=== PATIENT | female | born 1985 | race Caucasian/White ===

== ENCOUNTER 2017-10-29 09:00 | Emergency (ER) | payer OTHER ==
[~2017-10-29] VITALS: Ht 167.6 cm; Wt 128.4 kg
[~2017-10-29 09:00] MED LIST: IBUP600T44 PO
[2017-10-29 09:06] VITALS: TEMP 36.7; Ht 167.6 cm; Wt 128.4 kg
[2017-10-29 09:59] LABS: BASO % 0.1 %; BASO ABS # 0.01 K/uL (0-0.2); EOS % 0.7 %; EOS ABS # 0.08 K/uL (0-0.5); HEMATOCRIT 44.6 % (37-47); HEMOGLOBIN 14.6 g/dL (12.0-16.0); IG# 0.09 K/uL (0.00-0.02); LYMPH % 19.5 %; LYMPH ABS # 2.22 K/uL (1.2-3.4); MEAN CELL VOLUME 78.7 fL (80-100); MEAN CORPUSCULAR HEMOGLOBIN 25.7 pg (25-34); MEAN CORPUSCULAR HGB CONC 32.7 g/dl (32-36); MEAN PLATELET VOLUME 8.9 fL (7.4-10.4); MONO % 7.1 %; MONO ABS # 0.81 K/uL (0.11-0.59); NEUT % 71.8 %; NEUT ABS # 8.16 K/uL (1.4-6.5); PLATELET COUNT 435 K/uL (130-400); RED CELL DISTRIBUTION WIDTH CV 14.6 % (11.5-14.5); RED CELL DISTRIBUTION WIDTH SD 42.2 fL (36.4-46.3); WHITE BLOOD COUNT 11.37 K/uL (4.8-10.8)
[2017-10-29 10:07] LABS: ALBUMIN 3.6 gm/dl (3.4-5.0); ALT/SGPT 60 U/L (12-78); BLOOD UREA NITROGEN 14 mg/dl (7-18); CALCIUM 8.9 mg/dl (8.5-10.1); CARBON DIOXIDE 25 mmol/L (21-32); CREATININE 0.78 mg/dl (0.60-1.20); GLUCOSE 97 mg/dl (70-99); LIPASE 169 U/L (73-393); POTASSIUM 4.2 mmol/L (3.5-5.1); SODIUM 139 mmol/L (136-145)
[2017-10-29 10:10] LABS: ALKALINE PHOSPHATASE 76 U/L (45-117); AST/SGOT 30 U/L (15-37)
[2017-10-29] MEDS ORDERED: KETOROLAC TROMETHAMINE 30 MG/ML VIAL IV STA (10:20)
--- NOTE | 2017-10-29 11:30 | DIAGNOSTIC IMAGING REPORT ---
ABD/PELVIS WITHOUT FOR STONE CT DOSE: 1791.31 mGy.cm HISTORY: Pain LEFT FLANK PAIN TECHNIQUE: Multiaxial CT images of the abdomen and pelvis were performed without the use of intravenous and oral contrast according to the standard department stone protocol. A dose lowering technique was utilized adhering to the principles of ALARA. COMPARISON STUDY: None. FINDINGS: The lung bases are clear. The unenhanced liver, gallbladder, spleen, pancreas, and adrenal glands are unremarkable. No renal stones or hydronephrosis. No bowel wall thickening or obstruction. The pelvic organs are unremarkable. No suspicious lytic or blastic osseous lesions. There is fatty infiltration of liver. There is a 4 mm obstructing calculus transaxial image at 350 on the left. There is no hydroureteronephrosis. IMPRESSION: 1. 4 mm nonobstructing calculus distal left ureter approximately at the inferior left sacroiliac joint level 2. Study is otherwise remarkable only for fatty infiltration of liver. 3. No evidence for hydroureteronephrosis. The above report was generated using voice recognition software. It may contain grammatical, syntax or spelling errors. Electronically signed by: Eb Vega M.D. 10/29/2017 11:29 AM Dictated Date/Time: 10/29/2017 11:19 AM
[2017-10-29] MEDS ORDERED: ONDA4TAB10 SL (12:03)
[2017-10-29] MEDS ORDERED: OXYC1TAB3 PO (12:03)
[2017-10-29 12:22] VITALS: BP 122/79; PULSE 90; O2SAT 95
--- NOTE | 2017-10-29 16:51 | EMERGENCY ROOM VISIT NOTE ---
History Report prepared by Love: Patricia Huizar Under the Supervision of: Dr. Timo Denton M.D. First contact with patient: 09:28 Chief Complaint: FLANK PAIN Stated Complaint: BACK/SIDE PAIN - SHARP History of Present Illness The patient is a 32 year old female who presents to the Emergency Room with complaints of sudden left flank pain beginning at 0700 this morning. She rates her pain currently at a 3/10, but states that at its worst it was a 9/10. The patient states that she has never had a pain like this before. The patient denies a family history of kidney problems. Pt denies LOC, headache, fevers, chills, chest pain, breathing difficulties, nausea, vomiting, back pain, numbness, weakness, or other complaints. Source of History: patient Onset: 0700 this morning Position: other (left flank) Symptom Intensity: rated at a 9/10 Timing: other (sudden) Associated Symptoms: No fevers Review of Systems See HPI for pertinent positives and negatives. A total of ten systems were reviewed and were otherwise negative. Past Medical & Surgical Medical Problems: (1) No known problems Family History Hypertension Social History Smoking Status: Never Smoker Alcohol Use: occasionally Marital Status: Housing Status: lives with significant other Current/Historical Medications Scheduled Ondasetron Odt (Zofran Odt), 4 MG SL Q6H Scheduled PRN Oxycodone Ir (Roxicodone Ir), 1-2 TAB PO Q4H PRN for Pain Allergies Coded Allergies: No Known Allergies (Unverified , 10/29/17) Physical Exam Vital Signs Date Time Temp Pulse Resp B/P (MAP) Pulse Ox O2 Delivery O2 Flow Rate FiO2 10/29/17 12:22 90 16 122/79 95 10/29/17 10:56 87 18 131/88 94 Room Air 10/29/17 09:06 36.7 87 16 132/80 98 Room Air Physical Exam GENERAL: Awake, alert, well-appearing, in no distress HENT: Normocephalic, atraumatic. Oropharynx unremarkable. EYES: Normal conjunctiva. Sclera non-icteric. NECK: Supple. No nuchal rigidity. FROM. No JVD. RESPIRATORY: Clear to auscultation. CARDIAC: Regular rate, normal rhythm. Extremities warm and well perfused. Pulses equal. ABDOMEN: Soft, non-distended. No tenderness to palpation. No rebound or guarding. No masses. RECTAL: Deferred. MUSCULOSKELETAL: Chest examination reveals no tenderness. The back is symmetrical on inspection without obvious abnormality. There is left CVA tenderness to palpation. No joint edema. LOWER EXTREMITIES: Calves are equal size bilaterally and non-tender. No edema. No discoloration. NEURO: Normal sensorium. No sensory or motor deficits noted. SKIN: No rash or jaundice noted. Medical Decision & Procedures ER Provider Diagnostic Interpretation: Radiology results as stated below per my review and radiologist interpretation: ABD/PELVIS WITHOUT FOR STONE CT DOSE: 1791.31 mGy.cm HISTORY: Pain LEFT FLANK PAIN TECHNIQUE: Multiaxial CT images of the abdomen and pelvis were performed without the use of intravenous and oral contrast according to the standard department stone protocol. A dose lowering technique was utilized adhering to the principles of ALARA. COMPARISON STUDY: None. FINDINGS: The lung bases are clear. The unenhanced liver, gallbladder, spleen, pancreas, and adrenal glands are unremarkable. No renal stones or hydronephrosis. No bowel wall thickening or obstruction. The pelvic organs are unremarkable. No suspicious lytic or blastic osseous lesions. There is fatty infiltration of liver. There is a 4 mm obstructing calculus transaxial image at 350 on the left. There is no hydroureteronephrosis. IMPRESSION: 1. 4 mm nonobstructing calculus distal left ureter approximately at the inferior left sacroiliac joint level 2. Study is otherwise remarkable only for fatty infiltration of liver. 3. No evidence for hydroureteronephrosis. The above report was generated using voice recognition software. It may contain grammatical, syntax or spelling errors. Electronically signed by: Eb Vega M.D. 10/29/2017 11:29 AM Dictated Date/Time: 10/29/2017 11:19 AM Laboratory Results 10/29/17 09:45 Red Blood Count 5.67, Mean Corpuscular Volume 78.7, Mean Corpuscular Hemoglobin 25.7, Mean Corpuscular Hemoglobin Concent 32.7, Mean Platelet Volume 8.9, Neutrophils (%) (Auto) 71.8, Lymphocytes (%) (Auto) 19.5, Monocytes (%) (Auto) 7.1, Eosinophils (%) (Auto) 0.7, Basophils (%) (Auto) 0.1, Neutrophils # (Auto) 8.16, Lymphocytes # (Auto) 2.22, Monocytes # (Auto) 0.81, Eosinophils # (Auto) 0.08, Basophils # (Auto) 0.01 10/29/17 09:45 Test 10/29/17 09:45 10/29/17 09:55 White Blood Count 11.37 K/uL (4.8-10.8) Red Blood Count 5.67 M/uL (4.2-5.4) Hemoglobin 14.6 g/dL (12.0-16.0) Hematocrit 44.6 % (37-47) Mean Corpuscular Volume 78.7 fL (80-100) Mean Corpuscular Hemoglobin 25.7 pg (25-34) Mean Corpuscular Hemoglobin Concent 32.7 g/dl (32-36) Platelet Count 435 K/uL (130-400) Mean Platelet Volume 8.9 fL (7.4-10.4) Neutrophils (%) (Auto) 71.8 % Lymphocytes (%) (Auto) 19.5 % Monocytes (%) (Auto) 7.1 % Eosinophils (%) (Auto) 0.7 % Basophils (%) (Auto) 0.1 % Neutrophils # (Auto) 8.16 K/uL (1.4-6.5) Lymphocytes # (Auto) 2.22 K/uL (1.2-3.4) Monocytes # (Auto) 0.81 K/uL (0.11-0.59) Eosinophils # (Auto) 0.08 K/uL (0-0.5) Basophils # (Auto) 0.01 K/uL (0-0.2) RDW Standard Deviation 42.2 fL (36.4-46.3) RDW Coefficient of Variation 14.6 % (11.5-14.5) Immature Granulocyte % (Auto) 0.8 % Immature Granulocyte # (Auto) 0.09 K/uL (0.00-0.02) Anion Gap 7.0 mmol/L (3-11) Est Creatinine Clear Calc Drug Dose 140.8 ml/min Estimated GFR () 115.8 Estimated GFR (Non- 99.9 BUN/Creatinine Ratio 18.4 (10-20) Calcium Level 8.9 mg/dl (8.5-10.1) Total Bilirubin 0.5 mg/dl (0.2-1) Direct Bilirubin < 0.1 mg/dl (0-0.2) Aspartate Amino Transf (AST/SGOT) 30 U/L (15-37) Alanine Aminotransferase (ALT/SGPT) 60 U/L (12-78) Alkaline Phosphatase 76 U/L (45-117) Total Protein 8.0 gm/dl (6.4-8.2) Albumin 3.6 gm/dl (3.4-5.0) Lipase 169 U/L (73-393) Urine Color YELLOW Urine Appearance CLEAR (CLEAR) Urine pH 6.0 (4.5-7.5) Urine Specific [employer] 1.012 (1.000-1.030) Urine Protein NEG (NEG) Urine Glucose (UA) NEG (NEG) Urine Ketones NEG (NEG) Urine Occult Blood 3+ (NEG) Urine Nitrite NEG (NEG) Urine Bilirubin NEG (NEG) Urine Urobilinogen NEG (NEG) Urine Leukocyte Esterase TRACE (NEG) Urine WBC (Auto) 1-5 /hpf (0-5) Urine RBC (Auto) 10-30 /hpf (0-4) Urine Hyaline Casts (Auto) 1-5 /lpf (0-5) Urine Epithelial Cells (Auto) >30 /lpf (0-5) Urine Bacteria (Auto) 1+ (NEG) Urine Mucus PRESENT (NONE PRSENT) Urine Test NEG (NEG) Laboratory results reviewed by me Medications Administered Medications (Trade) Dose Ordered Sig/Lesli Route Start Time Stop Time Status Last Admin Dose Admin Ketorolac Tromethamine (Toradol Inj) 10 mg NOW STAT IV 10/29/17 10:20 10/29/17 10:22 DC 10/29/17 10:57 10 MG ED Course 1019: The patient was evaluated in room A3. A complete history and physical exam was performed. 1020: Ordered Toradol Inj 10 mg IV. 1200: I reevaluated the patient. Discussed results and discharge instructions: She verbalized understanding and agreement. The patient is ready for discharge. Medical Decision Prior records/ancillary studies reviewed. Triage Nursing notes reviewed and agree them. Additional history obtained from the family. The patient's history was concerning for flank and abdominal pain. Differential diagnosis: Etiologies such as renal colic, appendicitis, diverticulitis, mesenteric ischemia, aortic pathology, infections, inflammatory bowel disease, PUD, biliary pathology, UTI, as well as others were entertained. Physical examination findings: As above. ER treatment provided: IV Toradol On reassessment the patient felt better. Diagnostic interpretation by me: The labs revealed slight leukocytosis. Chemistry panel unremarkable.. Urinalysis revealed hematuria. There was no sign of UTI. Imaging studies: CT of the abdomen and pelvis as above. It appears that the patient has isolated renal colic from a left sided stone. By the evaluation outlined above emergent etiologies such as appendicitis, diverticulitis, mesenteric ischemia, aortic pathology, infections, inflammatory bowel disease, PUD, biliary pathology, UTI, as well as others were deemed relatively unlikely. The patient and family informed about the findings as listed above. All questions were answered and they were pleased with the treatment. Return instructions were outlined and the patient was discharged in stable condition. Outpatient prescription management: Oxy IR 5mg 1-2 po Q4 hrs prn Zofran Referral: The pt was referred to [facility] urology for follow up care regarding their stone. Medication Reconcilliation Current Medication List: was personally reviewed by me Blood Pressure Screening Patient's blood pressure: Normal blood pressure Impression Primary Impression: Kidney stone on left side Scribe Attestation The scribe's documentation has been prepared under my direction and personally reviewed by me in its entirety. I confirm that the note above accurately reflects all work, treatment, procedures, and medical decision making performed by me. Departure Information Dispostion Home / Self-Care Prescriptions Ondasetron Odt (ZOFRAN ODT) 4 Mg Tab 4 MG SL Q6H for Nausea, #6 TAB Prov: Timo Denton MD 10/29/17 Oxycodone Ir (Roxicodone Ir) 5 Mg Tab 1-2 TAB PO Q4H Y for Pain, #15 TAB Prov: Timo Denton MD 10/29/17 Referrals Kory Bear M.D.([facility]) (PCP) Toña Randle MD Forms HOME CARE DOCUMENTATION FORM, IMPORTANT VISIT INFORMATION Patient Instructions My [facility] Additional Instructions KIDNEY STONE INSTRUCTIONS: Oxycodone Immediate Release (OxyIR) 5mg: Take 1-2 pills every four hours for pain. Avoid alcohol, operating machinery or dangerous equipment, working on ladders or roofs, DRIVING, or situations where being under the influence may be dangerous. It is recommended to use an [id number] stool softener such as Colace, 100mg twice daily while taking this medication to avoid constipation. Zofran 4 mg oral dissolving tablets: take one tablet and allow it to melt in your mouth every 4 hours as needed for nausea. Ibuprofen(Motrin, Advil) may be used for fever or pain. Use 600mg every six hours as needed. Take with food. Avoid using more than 2400mg in a 24 hour period. Do not use 2400mg per day for more than three consecutive days without physician direction. Prolonged inappropriate use can lead to stomach upset or ulcers. This medication can be taken if you need to drive, work, or perform activities which may be dangerous when taking narcotic pain medication. (AND/OR) Acetaminophen(Tylenol) may be used for fever or pain. Use 1000mg every six hours as needed. Avoid using more than 4000mg in a 24 hour period. This medication can be taken if you need to drive, work, or perform activities which may be dangerous when taking narcotic pain medication. Strain your urine and collect all the stones or debris for the urologists. Rest and avoid strenuous activity until your stone passes and symptoms resolve. Drink plenty of fluids. Return to the ER for worsening abdominal or back pain, vomiting, fevers, passing out, or as needed. Follow up with [facility] urology on Tuesday to arrange a visit. The number is listed below under Dr. Randle.
== END 2017-10-29 12:23 | disposition home or self-care (01) ==
LOC: C.EDB 09:01 → C.EDA 12:23
DX: N20.0 Calculus of kidney (principal); Z82.49 Family history of ischemic heart disease and other diseases of the circulatory system

== ENCOUNTER 2023-06-21 12:44 | Inpatient (IN) ==
[2023-06-21 14:49] LABS: Basophils # (auto) 0.02 K/uL (0.00-0.20); Basophils % (auto) 0.2 %; Eosinophils # (auto) 0.05 K/uL (0.00-0.50); Eosinophils % (auto) 0.6 %; Hematocrit (blood only) 34.2 % (37.0-47.0); Hemoglobin 10.7 g/dl (12.0-16.0); Immature Granulocytes # (auto) 0.05 K/uL (0.01-0.20); Immature Granulocytes % (auto) 0.6 %; Lymphocytes # (auto) 1.72 K/uL (1.20-3.40); Lymphocytes % (auto) 19.8 %; Mean Corpuscular Hemoglobin 24.5 pg (25.0-34.0); Mean Corpuscular Hgb Conc 31.3 g/dL (32.0-36.0); Mean Corpuscular Volume 78.3 fL (80.0-100.0); Mean Platelet Volume 9.2 fL (9.4-12.4); Monocytes % (auto) 6.9 %; Neutrophils # (auto) 6.24 K/uL (1.40-6.50); Neutrophils % (auto) 71.9 %; Platelet Count 399 K/uL (130-400); RDW Coefficient of Variation 15.9 % (11.5-14.5); RDW Standard Deviation 45.3 fL (36.4-46.3); Red Blood Count 4.37 M/uL (4.20-5.40); White Blood Count 8.68 K/ul (4.8-10.8)
[2023-06-21 14:55] LABS: Albumin Level 3.1 gm/dl (3.4-5.0); BUN Creatinine Ratio 22.4 (10-20); Bilirubin,Total 0.2 mg/dl (0.2-1.0); Calcium 8.8 mg/dl (8.6-10.3); Creatinine Clr Calc Pharmacy 194.4 ml/min; Est GFR (African American) 135.5 ml/min; Est GFR (Non-African American) 116.9 ml/min; Globulin 3.2 gm/dl (2.5-4.0); Potassium 3.8 mmol/L (3.5-5.1); Total Protein 6.3 gm/dl (6.0-8.3)
[2023-06-21 15:29] LABS: Creatinine Urine Random 68.8 mg/dl; Protein Creatinine Ratio Urine 1.2 (0-0.2); Total Protein Urine Random 82.7 mg/dl (0-11.9)
[2023-06-21] MEDS ORDERED: OXYTOCIN 30 UNITS/500 ML BAG IV PRN (16:23)
[2023-06-21] MEDS ORDERED: DINOPROSTONE 10 MG INSERT PV ONE (16:23)
[2023-06-21] MEDS ORDERED: LIDOCAINE 1% LOCAL 20 ML VIAL INFIL PRN (16:23)
[2023-06-21] MEDS ORDERED: INSULIN REGULAR 250 UNITS in SODIUM CHLORIDE 0.9% 247.5 ML IV PRN (16:26)
[2023-06-21] MEDS ORDERED: MAG SULFATE 4GM BOLUS FROM BAG IV ONE (16:26)
[2023-06-21] MEDS ORDERED: DEXTROSE 50% 50 ML SYRINGE IV PRN (16:26)
[2023-06-21] MEDS ORDERED: DEXTROSE 5% 1,000 ML IV PRN (16:26)
[2023-06-21] MEDS ORDERED: SODIUM CHLORIDE 0.9% 1,000 ML IV PRN (16:26)
[2023-06-21] MEDS ORDERED: LABETALOL HCL IV 5 MG/ML 20ML IV STA (16:39)
[2023-06-21] MEDS ORDERED: BETAMETH SOD PHOS/ACETATE IA 6 MG/ML IM ONE (16:45)
--- NOTE | 2023-06-21 16:55 | Obstetrical Progress Note ---
Date of Service June 21, 2023 Assessment & Plan (1) Gestational diabetes: Plan: 37 yo @ 35.5 weeks Morbid obesity Preeclampsia (2) Preeclampsia: Plan: Admit labetalol for BP insulin at bedtime magnesium sulphate betamethasone series start induction with Cervidil Peds notified Admission and Anticipated Discharge Date Admission Date: June 21, 2023 Results & Data Vital Signs (Past 12 Hours) Vital Signs Temp Pulse Resp BP 06/21/23 13:37 36.8 C 20 06/21/23 16:38 79 06/21/23 16:38 163/77 H 06/21/23 16:08 81 06/21/23 16:08 164/80 H 06/21/23 15:38 82 06/21/23 15:38 169/79 H 06/21/23 15:08 77 06/21/23 15:08 163/75 H 06/21/23 14:38 71 06/21/23 14:38 159/74 H 06/21/23 14:09 73 06/21/23 14:09 154/74 H 06/21/23 13:38 76 06/21/23 13:38 140/67 06/21/23 13:23 76 148/70 H 06/21/23 12:54 75 143/79 H
[2023-06-21 17:14] LABS: Hematocrit (blood only) 34.8 % (37.0-47.0); Hemoglobin 10.8 g/dl (12.0-16.0); Mean Corpuscular Hemoglobin 24.3 pg (25.0-34.0); Mean Corpuscular Volume 78.2 fL (80.0-100.0); Mean Platelet Volume 9.1 fL (9.4-12.4); Platelet Count 408 K/uL (130-400); RDW Coefficient of Variation 15.9 % (11.5-14.5); RDW Standard Deviation 45.2 fL (36.4-46.3); Red Blood Count 4.45 M/uL (4.20-5.40); White Blood Count 9.01 K/ul (4.8-10.8)
[2023-06-21] MEDS: LACTATED RINGER'S 1,000 ML IV PRN (17:43)
[2023-06-21] MEDS: MAGNESIUM SULFATE / WTR 40 GM/1,000 ML BAG IV SCH (18:20)
--- NOTE | 2023-06-21 20:16 | Progress Note ---
Date of Service June 21, 2023 Assessment & Plan (1) Preeclampsia: Plan: Pt doing well Admitted Pt on Magnesium and tolerating it well Betamethasone 1st series given. second series scheduled for tomorrow BP is improved on labetalol Pt wishes not to have Melo placed. Understands risk of fall on Magnesium as she navigates to bathroom- Pt willing to accept risk Will keep I&O's GBS culx obtained VE; FT/post/0% effacement Cervidil placed in Vagina BS sachin for Fasting and 1 HR postprandial EFW 6-7lbs (2) Gestational diabetes: Admission and Anticipated Discharge Date Admission Date: June 21, 2023 Results & Data Vital Signs (Past 12 Hours) Vital Signs Temp Pulse Resp BP 06/21/23 18:00 80 140/72 06/21/23 17:46 81 168/78 H 06/21/23 13:37 36.8 C 20 06/21/23 20:05 98 H 06/21/23 20:05 135/77 06/21/23 19:10 91 H 06/21/23 19:10 137/63 06/21/23 17:12 17 06/21/23 17:12 17 06/21/23 17:44 20 06/21/23 17:44 20 06/21/23 18:12 18 06/21/23 18:12 18 06/21/23 18:40 18 06/21/23 18:40 18 06/21/23 18:55 93 H 06/21/23 18:55 137/71 06/21/23 18:40 91 H 06/21/23 18:40 136/71 06/21/23 18:22 86 06/21/23 18:22 135/73 06/21/23 18:19 91 H 06/21/23 18:19 139/83 06/21/23 18:12 88 06/21/23 18:12 144/74 H 06/21/23 18:07 87 06/21/23 18:07 128/64 06/21/23 18:05 86 06/21/23 18:05 140/74 06/21/23 18:03 82 06/21/23 18:03 140/73 06/21/23 17:58 80 06/21/23 17:58 140/72 06/21/23 17:52 82 06/21/23 17:52 154/68 H 06/21/23 17:44 81 06/21/23 17:44 168/78 H 06/21/23 17:12 92 H 06/21/23 17:12 154/73 H 06/21/23 16:38 79 06/21/23 16:38 163/77 H 06/21/23 16:08 81 06/21/23 16:08 164/80 H 06/21/23 15:38 82 06/21/23 15:38 169/79 H 06/21/23 15:08 77 06/21/23 15:08 163/75 H 06/21/23 14:38 71 06/21/23 14:38 159/74 H 06/21/23 14:09 73 06/21/23 14:09 154/74 H 06/21/23 13:38 76 06/21/23 13:38 140/67 06/21/23 13:23 76 148/70 H 06/21/23 12:54 75 143/79 H
[2023-06-21] MEDS: LANTUS PER UNIT CHARGE SQ SCH (21:22)
[2023-06-21] MEDS: LABETALOL HCL 200 MG TAB PO SCH (21:22)
--- NOTE | 2023-06-21 22:12 | Obstetrical Progress Note ---
Date of Service June 21, 2023 Assessment & Plan (1) Preeclampsia: Plan: Pt experienced decelerations Cervidil removed from vagina by nurse FHR returned to baseline BP stable (2) Gestational diabetes: Plan: Will consider chavez bulb placement Admission and Anticipated Discharge Date Admission Date: June 21, 2023 Results & Data Vital Signs (Past 12 Hours) Vital Signs Temp Pulse Resp BP 06/21/23 20:00 18 06/21/23 18:00 80 140/72 06/21/23 17:46 81 168/78 H 06/21/23 13:37 36.8 C 20 06/21/23 22:07 99 H 06/21/23 22:07 134/65 06/21/23 21:22 93 H 06/21/23 21:22 153/72 H 06/21/23 21:07 93 H 06/21/23 21:07 143/72 H 06/21/23 20:00 18 06/21/23 20:00 36.7 C 18 06/21/23 20:05 98 H 06/21/23 20:05 135/77 06/21/23 19:10 91 H 06/21/23 19:10 137/63 06/21/23 17:12 17 06/21/23 17:12 17 06/21/23 17:44 20 06/21/23 17:44 20 06/21/23 18:12 18 06/21/23 18:12 18 06/21/23 18:40 18 06/21/23 18:40 18 06/21/23 18:55 93 H 06/21/23 18:55 137/71 06/21/23 18:40 91 H 06/21/23 18:40 136/71 06/21/23 18:22 86 06/21/23 18:22 135/73 06/21/23 18:19 91 H 06/21/23 18:19 139/83 06/21/23 18:12 88 06/21/23 18:12 144/74 H 06/21/23 18:07 87 06/21/23 18:07 128/64 06/21/23 18:05 86 06/21/23 18:05 140/74 06/21/23 18:03 82 06/21/23 18:03 140/73 06/21/23 17:58 80 06/21/23 17:58 140/72 06/21/23 17:52 82 06/21/23 17:52 154/68 H 06/21/23 17:44 81 06/21/23 17:44 168/78 H 06/21/23 17:12 92 H 06/21/23 17:12 154/73 H 06/21/23 16:38 79 06/21/23 16:38 163/77 H 06/21/23 16:08 81 06/21/23 16:08 164/80 H 06/21/23 15:38 82 06/21/23 15:38 169/79 H 06/21/23 15:08 77 06/21/23 15:08 163/75 H 06/21/23 14:38 71 06/21/23 14:38 159/74 H 06/21/23 14:09 73 06/21/23 14:09 154/74 H 06/21/23 13:38 76 06/21/23 13:38 140/67 06/21/23 13:23 76 148/70 H 06/21/23 12:54 75 143/79 H
[2023-06-21] MEDS ORDERED: fentaNYL citrate PF 100 MCG/2 ML VIAL ONE (23:57)
[2023-06-21] MEDS ORDERED: ePHEDrine sulfate 50 MG/ML AMP ONE (23:57)
[2023-06-21] MEDS ORDERED: LIDOCAINE 2%/EPINEPHRINE 1:200,000 20 ML PF ONE (23:58)
[2023-06-21] MEDS ORDERED: BUPIVACAINE 0.25% PF 30 ML VIAL ONE (23:58)
[2023-06-21] MEDS ORDERED: fentaNYL 2MCG/ML ROPIVACAINE 1.25MG/ML 100 ML BAG EPI ONE (23:58)
[2023-06-21] MEDS ORDERED: SODIUM CHLORIDE 0.9% PF INJ 10 ML VIAL ONE (23:58)
[2023-06-22] MEDS ORDERED: fentaNYL 2MCG/ML ROPIVACAINE 1.25MG/ML 100 ML BAG EPI PRN (00:10)
[2023-06-22] MEDS ORDERED: BUPIVACAINE 0.25% PF 30 ML VIAL EPI STA (00:10)
[2023-06-22] MEDS ORDERED: SODIUM CHLORIDE 0.9% PF INJ 10 ML VIAL EPI PRN (00:10)
[2023-06-22] MEDS ORDERED: fentaNYL citrate PF 100 MCG/2 ML VIAL EPI PRN (00:10)
[2023-06-22] MEDS ORDERED: NALOXONE HCL 1 MG in SODIUM CHLORIDE 0.9% 1,000 ML IV PRN (00:10)
[2023-06-22] MEDS ORDERED: LIDOCAINE 2%/EPINEPHRINE 1:200,000 20 ML PF EPI STA (00:10)
[2023-06-22] MEDS ORDERED: NALOXONE HCL 0.4 MG/1 ML VIAL/CARP IV PRN (00:10)
[2023-06-22] MEDS ORDERED: NALBUPHINE HCL INJ 10 MG/ML AMP IV PRN (00:10)
[2023-06-22] MEDS ORDERED: SODIUM CHLORIDE 0.9% PF INJ 10 ML VIAL EPI STA (00:10)
[2023-06-22] MEDS ORDERED: BUPIVACAINE 0.25% PF 30 ML VIAL EPI PRN (00:10)
[2023-06-22] MEDS ORDERED: ePHEDrine sulfate 50 MG/ML AMP IV PRN (00:10)
[2023-06-22] MEDS ORDERED: diphenhydrAMINE 50 MG/ML VIAL IV PRN (00:10)
[2023-06-22] MEDS ORDERED: LIDOCAINE 2% MPF LOCAL 5 ML VIAL EPI PRN (00:10)
[2023-06-22] MEDS ORDERED: fentaNYL citrate PF 100 MCG/2 ML VIAL EPI STA (00:10)
[2023-06-22] MEDS ORDERED: ROPIVACAINE 0.5% PF 5 MG/ML 20 ML VIAL EPI PRN (00:10)
--- NOTE | 2023-06-22 00:10 | Anesthesiology Consultation ---
Date of Service June 22, 2023 Assessment & Plan (1) Encounter for pre-operative examination: Chart Review Chart Review: Patient NOT seen in Pre Admission Testing and Acceptable Risk for Labor Epidural Consults Requested none History Height/Weight Height: 5 ft 6 in Weight: 145.15 kg Allergies Allergy/AdvReac Type Severity Reaction Status Date / Time No Known Allergies Allergy Unverified 07/23/21 13:32 Medications Home Medications Medication Instructions Recorded Confirmed Last Taken aspirin 81 mg chewable tablet 81 mg PO DAILY 05/24/23 06/21/23 06/20/23 22:30 ferrous sulfate 325 mg (65 mg 325 mg PO Q OTHER DAY 05/24/23 05/24/23 06/20/23 21:00 iron) capsule,extended release [id number] 1 mg 1 tab PO DAILY 05/24/23 06/21/23 06/20/23 22:30 tablet Active Medications Generic Name Dose Route Start Last Admin Trade Name Freq PRN Reason Stop Dose Admin Lactated Ringer's 1,000 mls @ 125 mls/hr 06/21/23 16:23 06/21/23 18:21 Lr IV 06/23/23 16:22 75 mls/hr .Q8H PRN Infusion L&D Protocol Protocol Magnesium Sulfate 40 gm in 1,000 mls @ 50 mls/hr 06/21/23 16:30 06/21/23 19:49 Magnesium Sulfate / Wtr IV 07/21/23 16:29 50 mls/hr .Q20H RADHA Infusion Insulin Glargine 10 units 06/21/23 21:00 06/21/23 21:22 Lantus Per Unit Charge SQ 07/21/23 20:59 10 units HS RADHA Administration Labetalol HCl 200 mg 06/21/23 21:00 06/21/23 21:22 Labetalol Hcl 200 Mg Tab PO 07/21/23 20:59 200 mg BID RADHA Administration Past Medical History Medical History Kidney stones 2018 Past Family History Family History Grandfather (Maternal) Lung cancer Grandfather (Paternal) Diabetes Aunt Leukemia Past Surgical History Surgical History [place] teeth removed 2016 Social History Smoking Status: Never smoker Hx Alcohol Use: No Hx Substance Use: No Physical Exam Vital Signs Last Vital Signs Temp 98.1 F 06/21/23 20:00 Pulse 99 H 06/21/23 23:08 Resp 18 06/21/23 20:00 BP 135/59 L 06/21/23 23:08 Testing Laboratory Results 06/21/23 16:48 06/21/23 14:14 Blood Type A Positive 06/21/23 16:48 Antibody Screen NEGATIVE 06/21/23 16:48 06/21/23 19:13 POC Glucose 151 H
--- NOTE | 2023-06-22 00:14 | Obstetrical Progress Note ---
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; 2-3cm/50% (2) Gestational diabetes: Plan: Epidural analgesia will be placed Will attempt to AROM pt after epidural analgesia is placed Admission and Anticipated Discharge Date Admission Date: June 21, 2023 Results & Data Vital Signs (Past 12 Hours) Vital Signs Temp Pulse Resp BP 06/21/23 20:00 18 06/21/23 18:00 80 140/72 06/21/23 17:46 81 168/78 H 06/21/23 13:37 36.8 C 20 06/21/23 23:08 99 H 06/21/23 23:08 135/59 L 06/21/23 22:07 99 H 06/21/23 22:07 134/65 06/21/23 21:22 93 H 06/21/23 21:22 153/72 H 06/21/23 21:07 93 H 06/21/23 21:07 143/72 H 06/21/23 20:00 18 06/21/23 20:00 36.7 C 18 06/21/23 20:05 98 H 06/21/23 20:05 135/77 06/21/23 19:10 91 H 06/21/23 19:10 137/63 06/21/23 17:12 17 06/21/23 17:12 17 06/21/23 17:44 20 06/21/23 17:44 20 06/21/23 18:12 18 06/21/23 18:12 18 06/21/23 18:40 18 06/21/23 18:40 18 06/21/23 18:55 93 H 06/21/23 18:55 137/71 06/21/23 18:40 91 H 06/21/23 18:40 136/71 06/21/23 18:22 86 06/21/23 18:22 135/73 06/21/23 18:19 91 H 06/21/23 18:19 139/83 06/21/23 18:12 88 06/21/23 18:12 144/74 H 06/21/23 18:07 87 06/21/23 18:07 128/64 06/21/23 18:05 86 06/21/23 18:05 140/74 06/21/23 18:03 82 06/21/23 18:03 140/73 06/21/23 17:58 80 06/21/23 17:58 140/72 06/21/23 17:52 82 06/21/23 17:52 154/68 H 06/21/23 17:44 81 06/21/23 17:44 168/78 H 06/21/23 17:12 92 H 06/21/23 17:12 154/73 H 06/21/23 16:38 79 06/21/23 16:38 163/77 H 06/21/23 16:08 81 06/21/23 16:08 164/80 H 06/21/23 15:38 82 06/21/23 15:38 169/79 H 06/21/23 15:08 77 06/21/23 15:08 163/75 H 06/21/23 14:38 71 06/21/23 14:38 159/74 H 06/21/23 14:09 73 06/21/23 14:09 154/74 H 06/21/23 13:38 76 06/21/23 13:38 140/67 06/21/23 13:23 76 148/70 H 06/21/23 12:54 75 143/79 H
--- NOTE | 2023-06-22 01:42 | Obstetrical Progress Note ---
Date of Service June 22, 2023 Assessment & Plan (1) Encounter for pre-operative examination: Plan: Epidural analgesia placed by anesthesia FHR; CAT1. Poor tracing due to maternal habitus VE 3-4/50/-2 Ctx 1-3mins AROM with FSE and electrode placed for better FHR tracing Clear fluid noted after ROM (2) Preeclampsia: Admission and Anticipated Discharge Date Admission Date: June 21, 2023 Results & Data Vital Signs (Past 12 Hours) Vital Signs Temp Pulse Resp BP Pulse Ox 06/22/23 00:00 18 06/21/23 22:00 18 06/21/23 20:00 18 06/21/23 18:00 80 140/72 06/21/23 17:46 81 168/78 H 06/22/23 01:36 91 H 114/58 L 94 06/22/23 01:34 79 94 06/22/23 01:31 89 93 06/22/23 01:29 81 92 06/22/23 01:24 81 92 06/22/23 01:20 79 130/77 06/22/23 01:19 80 91 06/22/23 01:17 79 93 06/22/23 01:14 80 92 06/22/23 01:09 85 91 06/22/23 01:10 82 92 06/22/23 01:06 83 128/78 06/22/23 01:04 80 93 06/22/23 00:59 86 94 06/22/23 00:54 87 96 06/22/23 00:49 90 96 06/22/23 00:50 86 125/76 06/22/23 00:48 90 93 06/22/23 00:47 96 H 123/70 06/22/23 00:44 97 H 95 06/22/23 00:43 105 H 137/85 06/22/23 00:39 100 H 151/80 H 96 06/22/23 00:34 101 H 98 06/22/23 00:35 100 H 146/70 H 06/22/23 00:29 102 H 97 06/22/23 00:24 105 H 97 06/21/23 23:08 99 H 06/21/23 23:08 135/59 L 06/21/23 22:07 99 H 06/21/23 22:07 134/65 06/21/23 21:22 93 H 06/21/23 21:22 153/72 H 06/21/23 21:07 93 H 06/21/23 21:07 143/72 H 06/21/23 20:00 18 06/21/23 20:00 36.7 C 18 06/21/23 20:05 98 H 06/21/23 20:05 135/77 06/21/23 19:10 91 H 06/21/23 19:10 137/63 06/21/23 17:12 17 06/21/23 17:12 17 06/21/23 17:44 20 06/21/23 17:44 20 06/21/23 18:12 18 06/21/23 18:12 18 06/21/23 18:40 18 06/21/23 18:40 18 06/21/23 18:55 93 H 06/21/23 18:55 137/71 06/21/23 18:40 91 H 06/21/23 18:40 136/71 06/21/23 18:22 86 06/21/23 18:22 135/73 06/21/23 18:19 91 H 06/21/23 18:19 139/83 06/21/23 18:12 88 06/21/23 18:12 144/74 H 06/21/23 18:07 87 06/21/23 18:07 128/64 06/21/23 18:05 86 06/21/23 18:05 140/74 06/21/23 18:03 82 06/21/23 18:03 140/73 06/21/23 17:58 80 06/21/23 17:58 140/72 06/21/23 17:52 82 06/21/23 17:52 154/68 H 06/21/23 17:44 81 06/21/23 17:44 168/78 H 06/21/23 17:12 92 H 06/21/23 17:12 154/73 H 06/21/23 16:38 79 06/21/23 16:38 163/77 H 06/21/23 16:08 81 06/21/23 16:08 164/80 H 06/21/23 15:38 82 06/21/23 15:38 169/79 H 06/21/23 15:08 77 06/21/23 15:08 163/75 H 06/21/23 14:38 71 06/21/23 14:38 159/74 H 06/21/23 14:09 73 06/21/23 14:09 154/74 H
[2023-06-22] MEDS ORDERED: PENICILLIN G POTASSIUM 6 MU in DEXTROSE 5% 250 ML IV STA (02:34)
[2023-06-22] MEDS ORDERED: PENICILLIN G POTASSIUM 3 MU in DEXTROSE 5% 100 ML IV PRN (05:34)
[2023-06-22] MEDS ORDERED: OXYTOCIN 30 UNITS/500 ML BAG IV PRN ×2 (06:30→11:12)
--- NOTE | 2023-06-22 06:30 | Obstetrical Progress Note ---
Date of Service June 22, 2023 Assessment & Plan (1) Preeclampsia: Plan: Pt doing well pt tolerating magnesium well Stable BP on labetelol FHr ; CAT1 Ctx 1-3 , irregular VE 7/75/-2 (2) Gestational diabetes: Plan: Pitocin augmentation discussed with pt and spouce both agree will start Pitocin Admission and Anticipated Discharge Date Admission Date: June 21, 2023 Results & Data Vital Signs (Past 12 Hours) Vital Signs Temp Pulse Resp BP Pulse Ox 06/22/23 00:00 18 06/21/23 22:00 18 06/21/23 20:00 18 06/22/23 06:24 90 98 06/22/23 06:19 88 98 06/22/23 06:20 92 H 120/71 06/22/23 06:14 94 H 97 06/22/23 06:13 99 H 91 06/22/23 06:09 98 H 100 06/22/23 06:08 102 H 93 06/22/23 06:00 18 06/22/23 06:00 18 06/22/23 06:04 93 H 99 06/22/23 06:05 93 H 112/63 06/22/23 05:59 97 06/22/23 05:59 90 06/22/23 05:59 97 H 91 06/22/23 05:54 94 H 97 06/22/23 05:49 96 H 99 06/22/23 05:50 100 H 112/64 06/22/23 05:44 96 H 96 06/22/23 05:40 90 94 06/22/23 05:39 86 94 06/22/23 05:35 99 H 114/56 L 94 06/22/23 05:34 94 H 94 06/22/23 05:29 88 93 06/22/23 05:24 95 06/22/23 05:24 91 H 06/22/23 05:24 93 H 94 06/22/23 05:19 92 H 94 06/22/23 05:20 91 H 114/63 06/22/23 05:18 93 H 94 06/22/23 05:14 96 H 94 06/22/23 05:11 88 94 06/22/23 05:09 90 93 06/22/23 05:05 88 129/65 94 06/22/23 05:04 91 H 94 06/22/23 04:59 89 95 06/22/23 05:00 93 H 94 06/22/23 04:54 91 H 94 06/22/23 04:52 85 94 06/22/23 04:49 88 95 06/22/23 04:50 83 128/67 06/22/23 04:47 92 H 94 06/22/23 04:44 87 94 06/22/23 04:41 89 94 06/22/23 04:39 86 94 06/22/23 04:30 18 06/22/23 04:30 18 06/22/23 04:35 93 H 06/22/23 04:34 98 H 94 06/22/23 04:35 99 H 107/57 L 94 06/22/23 04:00 18 06/22/23 04:00 37.0 C 18 06/22/23 04:29 90 94 06/22/23 04:24 89 97 06/22/23 04:20 85 127/66 06/22/23 04:19 95 06/22/23 04:19 95 H 06/22/23 04:19 90 94 06/22/23 04:14 93 06/22/23 04:14 90 06/22/23 04:14 88 93 06/22/23 04:09 89 95 06/22/23 04:08 94 H 94 06/22/23 04:05 88 123/59 L 06/22/23 04:04 90 97 06/22/23 04:01 95 H 93 06/22/23 03:59 94 H 96 06/22/23 03:54 89 92 06/22/23 03:53 94 H 93 06/22/23 03:51 90 120/57 L 06/22/23 03:49 93 H 92 06/22/23 03:44 94 06/22/23 03:44 84 06/22/23 03:44 88 93 06/22/23 03:39 88 92 06/22/23 03:35 93 H 103/54 L 94 06/22/23 02:30 18 06/22/23 02:30 18 06/22/23 03:00 18 06/22/23 03:00 18 06/22/23 03:30 18 06/22/23 03:30 18 06/22/23 03:34 90 94 06/22/23 03:29 95 H 92 06/22/23 03:24 88 93 06/22/23 03:23 88 93 06/22/23 03:21 85 117/54 L 06/22/23 03:19 91 H 90 06/22/23 03:14 84 92 06/22/23 03:09 89 90 06/22/23 03:05 85 111/56 L 06/22/23 03:04 84 91 06/22/23 02:59 85 94 06/22/23 03:00 86 18 93 06/22/23 02:30 18 06/22/23 02:30 18 06/22/23 02:54 86 93 06/22/23 02:49 92 06/22/23 02:49 84 06/22/23 02:50 85 102/56 L 06/22/23 02:49 84 94 06/22/23 02:44 95 06/22/23 02:44 91 H 06/22/23 02:44 84 94 06/22/23 02:39 88 97 06/22/23 02:35 92 H 93 06/22/23 02:34 84 96 06/22/23 02:29 92 H 96 06/22/23 02:24 86 90 06/22/23 02:22 76 132/70 06/22/23 02:20 79 92 06/22/23 02:19 79 95 06/22/23 02:14 82 91 06/22/23 02:11 81 94 06/22/23 02:00 18 06/22/23 02:00 18 06/22/23 02:09 83 91 06/22/23 01:30 18 06/22/23 01:30 36.7 C 18 06/22/23 02:06 80 134/73 06/22/23 02:04 82 93 06/22/23 01:59 82 91 06/22/23 01:54 79 97 06/22/23 01:55 79 92 06/22/23 01:51 77 135/76 06/22/23 01:49 78 92 06/22/23 01:44 92 06/22/23 01:44 77 06/22/23 01:44 79 94 06/22/23 01:39 85 97 06/22/23 01:36 91 H 114/58 L 94 06/22/23 01:34 79 94 09/06/23 01:31 89 93 06/22/23 01:29 81 92 06/22/23 01:24 81 92 06/22/23 01:20 79 130/77 06/22/23 01:19 80 91 06/22/23 01:17 79 93 06/22/23 01:14 80 92 06/22/23 01:09 85 91 06/22/23 01:10 82 92 06/22/23 01:06 83 128/78 06/22/23 01:04 80 93 06/22/23 00:59 86 94 06/22/23 00:54 87 96 06/22/23 00:49 90 96 06/22/23 00:50 86 125/76 06/22/23 00:48 90 93 06/22/23 00:47 96 H 123/70 06/22/23 00:44 97 H 95 06/22/23 00:43 105 H 137/85 06/22/23 00:39 100 H 151/80 H 96 06/22/23 00:34 101 H 98 06/22/23 00:35 100 H 146/70 H 06/22/23 00:29 102 H 97 06/22/23 00:24 105 H 97 06/21/23 23:08 99 H 06/21/23 23:08 135/59 L 06/21/23 22:07 99 H 06/21/23 22:07 134/65 06/21/23 21:22 93 H 06/21/23 21:22 153/72 H 06/21/23 21:07 93 H 06/21/23 21:07 143/72 H 06/21/23 20:00 18 06/21/23 20:00 36.7 C 18 06/21/23 20:05 98 H 06/21/23 20:05 135/77 06/21/23 19:10 91 H 06/21/23 19:10 137/63 06/21/23 18:40 18 06/21/23 18:40 18 06/21/23 18:55 93 H 06/21/23 18:55 137/71 06/21/23 18:40 91 H 06/21/23 18:40 136/71
[2023-06-22] MEDS: LACTATED RINGER'S 1,000 ML IV PRN ×2 (06:39→20:03)
[2023-06-22] MEDS: LABETALOL HCL 200 MG TAB PO SCH ×2 (08:55→21:30)
--- NOTE | 2023-06-22 09:38 | History & Physical Report ---
Date of Service June 22, 2023 Assessment & Plan (1) Gestational diabetes: (2) Preeclampsia: Plan: 37 YO at 35.6 IOL for preeclampsia with severe features VSS Afebrile doing well No s/s Mag toxicity FHR reassuring Head high, OP, Continue with Oxytocin position change Continue to monitor closely Admission and Anticipated Discharge Date Admission Date: June 21, 2023 History of Present Illness Primary Care Provider: Maria Isabel Bruner DO Patient is a 37 yo at 35.6 wks admitted yesterday for preeclampsia with severe features, started on IV magnesium and IOL She has been AROM'ed and in active labor since this morning and started on Oxytocin to augment contractions Comfortable now no complaints No PORTER/ Change in vision/ N&V/ Abd pain/ CP/SOB FHR had been categ I On PCN for unknown GBS On Labetalol for HT, stable On insulin for GDMA2, Allergies Allergy/AdvReac Type Severity Reaction Status Date / Time No Known Allergies Allergy Unverified 07/23/21 13:32 Home Medications Medication Instructions Recorded Confirmed Type aspirin 81 mg chewable tablet 81 mg PO DAILY 05/24/23 06/21/23 History ferrous sulfate 325 mg (65 mg 325 mg PO Q OTHER DAY 05/24/23 05/24/23 History iron) capsule,extended release unljjtlr-mht-Vs-[id number] 1 mg 1 tab PO DAILY 05/24/23 06/21/23 History tablet Patient History Medical History Kidney stones 2018 Surgical History [place] teeth removed 2016 Family History Grandfather (Maternal) Lung cancer Grandfather (Paternal) Diabetes Aunt Leukemia Social History Smoking Status: Never smoker Hx Alcohol Use: No Hx Substance Use: No Preferred Language: [place] Communication Ability: Effective Mid Level Clinician Required: No Beliefs That Will Affect Care: None marital status: Current Living Situation: Spouse Feels Safe at Home: Yes Safety Concerns: Feels Safe At This Time Assistive Devices: None OB History FT , 11 years ago, 8 lb 12 oz boy [employer] History No h/o STD's, no h/o HSV/ Chlam/ GC Review of Systems as per Subjective / HPI Physical Exam Constitutional: WD/WN, vitals as above well developed, well nourished, + acute distress and comfortable Genitourinary: normal external appearance Manual OB Exam: + cervical dilation (6-7 cm) 6 cm, + cervical effacement 70% and + station (OP) -2 OB Exam Monitor Tracing: + scalp electrode used, + external uterine monitor used and + category I Results & Data Vital Signs (Past 12 Hours) Vital Signs Temp Pulse Resp BP Pulse Ox 06/22/23 07:15 36.7 C 20 06/22/23 07:15 20 06/22/23 00:00 18 06/21/23 22:00 18 06/22/23 09:29 86 98 06/22/23 09:24 85 99 06/22/23 09:19 85 98 06/22/23 09:20 83 130/76 06/22/23 09:14 87 99 06/22/23 09:09 82 96 06/22/23 09:05 93 H 133/59 L 06/22/23 09:04 93 H 97 06/22/23 09:00 36.8 C 91 H 20 86 L 06/22/23 08:59 90 99 06/22/23 08:56 80 139/71 06/22/23 08:54 88 99 06/22/23 08:51 100 H 97/50 L 06/22/23 08:49 94 H 97 06/22/23 08:50 96 H 93 06/22/23 08:44 91 H 94 06/22/23 08:39 88 99 06/22/23 08:37 79 93 06/22/23 08:35 76 136/76 06/22/23 08:34 82 97 06/22/23 08:30 20 06/22/23 08:30 20 06/22/23 08:29 87 96 06/22/23 08:26 92 H 94 06/22/23 08:24 87 98 06/22/23 08:20 77 135/81 06/22/23 08:19 80 97 06/22/23 08:00 20 06/22/23 08:00 20 06/22/23 08:14 82 96 06/22/23 08:09 84 99 06/22/23 08:08 79 90 06/22/23 08:04 83 100 06/22/23 08:05 91 H 135/81 06/22/23 07:59 87 99 06/22/23 07:54 99 06/22/23 07:54 86 06/22/23 07:54 84 93 06/22/23 07:50 78 135/80 06/22/23 07:49 80 96 06/22/23 07:44 87 96 06/22/23 07:43 83 93 06/22/23 07:39 86 98 06/22/23 07:37 85 92 06/22/23 07:35 88 146/83 H 06/22/23 07:34 85 99 06/22/23 07:29 85 96 06/22/23 07:24 90 97 06/22/23 07:20 88 129/71 06/22/23 07:19 85 98 06/22/23 07:14 90 97 06/22/23 07:09 83 97 06/22/23 07:05 88 130/74 06/22/23 07:04 87 93 06/22/23 07:00 18 06/22/23 07:00 18 06/22/23 07:01 91 H 92 06/22/23 06:59 85 98 06/22/23 06:55 83 94 06/22/23 06:54 81 95 06/22/23 06:50 83 137/72 06/22/23 06:49 85 95 06/22/23 06:44 83 95 06/22/23 06:40 80 94 06/22/23 06:39 87 96 06/22/23 06:30 18 06/22/23 06:30 18 06/22/23 06:15 36.6 C 06/22/23 06:36 88 130/78 06/22/23 06:34 87 97 06/22/23 06:32 89 94 06/22/23 06:29 85 96 06/22/23 06:24 90 98 06/22/23 06:19 88 98 06/22/23 06:20 92 H 120/71 06/22/23 06:14 94 H 97 06/22/23 06:13 99 H 91 09/06/23 06:09 98 H 100 06/22/23 06:08 102 H 93 06/22/23 06:00 18 06/22/23 06:00 18 06/22/23 06:04 93 H 99 06/22/23 06:05 93 H 112/63 06/22/23 05:59 97 06/22/23 05:59 90 06/22/23 05:59 97 H 91 06/22/23 05:54 94 H 97 06/22/23 05:49 96 H 99 06/22/23 05:50 100 H 112/64 06/22/23 05:44 96 H 96 06/22/23 05:40 90 94 06/22/23 05:39 86 94 06/22/23 05:35 99 H 114/56 L 94 06/22/23 05:34 94 H 94 06/22/23 05:29 88 93 06/22/23 05:24 95 06/22/23 05:24 91 H 06/22/23 05:24 93 H 94 06/22/23 05:19 92 H 94 06/22/23 05:20 91 H 114/63 06/22/23 05:18 93 H 94 06/22/23 05:14 96 H 94 06/22/23 05:11 88 94 06/22/23 05:09 90 93 06/22/23 05:05 88 129/65 94 06/22/23 05:04 91 H 94 06/22/23 04:59 89 95 06/22/23 05:00 93 H 94 06/22/23 04:54 91 H 94 06/22/23 04:52 85 94 06/22/23 04:49 88 95 06/22/23 04:50 83 128/67 06/22/23 04:47 92 H 94 06/22/23 04:44 87 94 06/22/23 04:41 89 94 06/22/23 04:39 86 94 06/22/23 04:30 18 06/22/23 04:30 18 06/22/23 04:35 93 H 06/22/23 04:34 98 H 94 06/22/23 04:35 99 H 107/57 L 94 06/22/23 04:00 18 06/22/23 04:00 37.0 C 18 06/22/23 04:29 90 94 06/22/23 04:24 89 97 06/22/23 04:20 85 127/66 06/22/23 04:19 95 06/22/23 04:19 95 H 06/22/23 04:19 90 94 06/22/23 04:14 93 06/22/23 04:14 90 06/22/23 04:14 88 93 06/22/23 04:09 89 95 06/22/23 04:08 94 H 94 06/22/23 04:05 88 123/59 L 06/22/23 04:04 90 97 06/22/23 04:01 95 H 93 06/22/23 03:59 94 H 96 06/22/23 03:54 89 92 06/22/23 03:53 94 H 93 06/22/23 03:51 90 120/57 L 06/22/23 03:49 93 H 92 06/22/23 03:44 94 06/22/23 03:44 84 06/22/23 03:44 88 93 06/22/23 03:39 88 92 06/22/23 03:35 93 H 103/54 L 94 06/22/23 02:30 18 06/22/23 02:30 18 06/22/23 03:00 18 06/22/23 03:00 18 06/22/23 03:30 18 06/22/23 03:30 18 06/22/23 03:34 90 94 06/22/23 03:29 95 H 92 06/22/23 03:24 88 93 06/22/23 03:23 88 93 06/22/23 03:21 85 117/54 L 06/22/23 03:19 91 H 90 06/22/23 03:14 84 92 06/22/23 03:09 89 90 06/22/23 03:05 85 111/56 L 06/22/23 03:04 84 91 06/22/23 02:59 85 94 06/22/23 03:00 86 18 93 06/22/23 02:30 18 06/22/23 02:30 18 06/22/23 02:54 86 93 06/22/23 02:49 92 06/22/23 02:49 84 06/22/23 02:50 85 102/56 L 06/22/23 02:49 84 94 06/22/23 02:44 95 06/22/23 02:44 91 H 06/22/23 02:44 84 94 06/22/23 02:39 88 97 06/22/23 02:35 92 H 93 06/22/23 02:34 84 96 06/22/23 02:29 92 H 96 06/22/23 02:24 86 90 06/22/23 02:22 76 132/70 06/22/23 02:20 79 92 06/22/23 02:19 79 95 06/22/23 02:14 82 91 06/22/23 02:11 81 94 06/22/23 02:00 18 06/22/23 02:00 18 06/22/23 02:09 83 91 06/22/23 01:30 18 06/22/23 01:30 36.7 C 18 06/22/23 02:06 80 134/73 06/22/23 02:04 82 93 06/22/23 01:59 82 91 06/22/23 01:54 79 97 06/22/23 01:55 79 92 06/22/23 01:51 77 135/76 06/22/23 01:49 78 92 06/22/23 01:44 92 06/22/23 01:44 77 06/22/23 01:44 79 94 06/22/23 01:39 85 97 06/22/23 01:36 91 H 114/58 L 94 06/22/23 01:34 79 94 06/22/23 01:31 89 93 06/22/23 01:29 81 92 06/22/23 01:24 81 92 06/22/23 01:20 79 130/77 06/22/23 01:19 80 91 06/22/23 01:17 79 93 06/22/23 01:14 80 92 06/22/23 01:09 85 91 06/22/23 01:10 82 92 06/22/23 01:06 83 128/78 06/22/23 01:04 80 93 06/22/23 00:59 86 94 06/22/23 00:54 87 96 06/22/23 00:49 90 96 06/22/23 00:50 86 125/76 06/22/23 00:48 90 93 06/22/23 00:47 96 H 123/70 09/06/23 00:44 97 H 95 06/22/23 00:43 105 H 137/85 06/22/23 00:39 100 H 151/80 H 96 06/22/23 00:34 101 H 98 06/22/23 00:35 100 H 146/70 H 06/22/23 00:29 102 H 97 06/22/23 00:24 105 H 97 06/21/23 23:08 99 H 06/21/23 23:08 135/59 L 06/21/23 22:07 99 H 06/21/23 22:07 134/65 Laboratory Results Lab Results 06/21/23 06/21/23 06/21/23 Range/Units 14:14 14:14 16:48 WBC 8.68 (4.8-10.8) K/ul RBC 4.37 (4.20-5.40) M/uL Hgb 10.7 L (12.0-16.0) g/dl Hct 34.2 L (37.0-47.0) % MCV 78.3 L (80.0-100.0) fL MCH 24.5 L (25.0-34.0) pg MCHC 31.3 L (32.0-36.0) g/dL RDW Std Deviation 45.3 (36.4-46.3) fL RDW Coeff of Jessica 15.9 H (11.5-14.5) % Plt Count 399 (130-400) K/uL MPV 9.2 L (9.4-12.4) fL Immature Gran % (Auto) 0.6 % Neut % (Auto) 71.9 % Lymph % (Auto) 19.8 % [place] % (Auto) 6.9 % Eos % (Auto) 0.6 % Baso % (Auto) 0.2 % Neut # (Auto) 6.24 (1.40-6.50) K/uL Lymph # (Auto) 1.72 (1.20-3.40) K/uL [place] # (Auto) 0.60 H (0.11-0.59) K/uL Eos # (Auto) 0.05 (0.00-0.50) K/uL Baso # (Auto) 0.02 (0.00-0.20) K/uL Immature Gran # (Auto) 0.05 (0.01-0.20) K/uL Sodium 135 L (136-145) mmol/L Potassium 3.8 (3.5-5.1) mmol/L Chloride 106 (98-107) mmol/L Carbon Dioxide 21 (21-32) mmol/L Anion Gap 8 (3-11) BUN 13 (6-23) mg/dl Creatinine 0.58 L (0.6-1.2) mg/dl Est Cr Clr Drug Dosing 194.4 ml/min Est GFR ( Amer) 135.5 ml/min Est GFR (Non-Af Amer) 116.9 ml/min BUN/Creatinine Ratio 22.4 H (10-20) Glucose 69 L (70-99(Fasting)) mg/dl POC Glucose (70-99) mg/dl Calcium 8.8 (8.6-10.3) mg/dl Total Bilirubin 0.2 (0.2-1.0) mg/dl AST 11 L (13-39) U/L ALT 9 (7-52) U/L Alkaline Phosphatase 114 H (34-104) U/L Total Protein 6.3 (6.0-8.3) gm/dl Albumin 3.1 L (3.4-5.0) gm/dl Globulin 3.2 (2.5-4.0) gm/dl Albumin/Globulin Ratio 1.0 (0.9-2) Ur Random Creatinine mg/dl U Random Total Protein (0-11.9) mg/dl Protein/Creatinin Ratio (0-0.2) Blood Type A Positive Antibody Screen NEGATIVE 06/21/23 06/21/23 06/21/23 Range/Units 16:48 19:13 Unknown WBC 9.01 (4.8-10.8) K/ul RBC 4.45 (4.20-5.40) M/uL Hgb 10.8 L (12.0-16.0) g/dl Hct 34.8 L (37.0-47.0) % MCV 78.2 L (80.0-100.0) fL MCH 24.3 L (25.0-34.0) pg MCHC 31.0 L (32.0-36.0) g/dL RDW Std Deviation 45.2 (36.4-46.3) fL RDW Coeff of Jessica 15.9 H (11.5-14.5) % Plt Count 408 H (130-400) K/uL MPV 9.1 L (9.4-12.4) fL Immature Gran % (Auto) % Neut % (Auto) % Lymph % (Auto) % [place] % (Auto) % Eos % (Auto) % Baso % (Auto) % Neut # (Auto) (1.40-6.50) K/uL Lymph # (Auto) (1.20-3.40) K/uL [place] # (Auto) (0.11-0.59) K/uL Eos # (Auto) (0.00-0.50) K/uL Baso # (Auto) (0.00-0.20) K/uL Immature Gran # (Auto) (0.01-0.20) K/uL Sodium (136-145) mmol/L Potassium (3.5-5.1) mmol/L Chloride (98-107) mmol/L Carbon Dioxide (21-32) mmol/L Anion Gap (3-11) BUN (6-23) mg/dl Creatinine (0.6-1.2) mg/dl Est Cr Clr Drug Dosing ml/min Est GFR ( Amer) ml/min Est GFR (Non-Af Amer) ml/min BUN/Creatinine Ratio (10-20) Glucose (70-99(Fasting)) mg/dl POC Glucose 151 H (70-99) mg/dl Calcium (8.6-10.3) mg/dl Total Bilirubin (0.2-1.0) mg/dl AST (13-39) U/L ALT (7-52) U/L Alkaline Phosphatase (34-104) U/L Total Protein (6.0-8.3) gm/dl Albumin (3.4-5.0) gm/dl Globulin (2.5-4.0) gm/dl Albumin/Globulin Ratio (0.9-2) Ur Random Creatinine 68.8 mg/dl U Random Total Protein 82.7 H (0-11.9) mg/dl Protein/Creatinin Ratio 1.2 H (0-0.2) Blood Type Antibody Screen 06/22/23 06/22/23 Range/Units 07:22 09:09 WBC (4.8-10.8) K/ul RBC (4.20-5.40) M/uL Hgb (12.0-16.0) g/dl Hct (37.0-47.0) % MCV (80.0-100.0) fL MCH (25.0-34.0) pg MCHC (32.0-36.0) g/dL RDW Std Deviation (36.4-46.3) fL RDW Coeff of Jessica (11.5-14.5) % Plt Count (130-400) K/uL MPV (9.4-12.4) fL Immature Gran % (Auto) % Neut % (Auto) % Lymph % (Auto) % [place] % (Auto) % Eos % (Auto) % Baso % (Auto) % Neut # (Auto) (1.40-6.50) K/uL Lymph # (Auto) (1.20-3.40) K/uL [place] # (Auto) (0.11-0.59) K/uL Eos # (Auto) (0.00-0.50) K/uL Baso # (Auto) (0.00-0.20) K/uL Immature Gran # (Auto) (0.01-0.20) K/uL Sodium (136-145) mmol/L Potassium (3.5-5.1) mmol/L Chloride (98-107) mmol/L Carbon Dioxide (21-32) mmol/L Anion Gap (3-11) BUN (6-23) mg/dl Creatinine (0.6-1.2) mg/dl Est Cr Clr Drug Dosing ml/min Est GFR ( Amer) ml/min Est GFR (Non-Af Amer) ml/min BUN/Creatinine Ratio (10-20) Glucose (70-99(Fasting)) mg/dl POC Glucose 105 H 107 H (70-99) mg/dl Calcium (8.6-10.3) mg/dl Total Bilirubin (0.2-1.0) mg/dl AST (13-39) U/L ALT (7-52) U/L Alkaline Phosphatase (34-104) U/L Total Protein (6.0-8.3) gm/dl Albumin (3.4-5.0) gm/dl Globulin (2.5-4.0) gm/dl Albumin/Globulin Ratio (0.9-2) Ur Random Creatinine mg/dl U Random Total Protein (0-11.9) mg/dl Protein/Creatinin Ratio (0-0.2) Blood Type Antibody Screen Code Status & VTE Plan VTE Prophylaxis Plan VTE Prophylaxis will be ordered: Yes
--- NOTE | 2023-06-22 10:20 | Obstetrical Progress Note ---
Date of Service June 22, 2023 Assessment & Plan Admission and Anticipated Discharge Date Admission Date: June 21, 2023 Subjective Attempted for IUPC to trace contractions better and adjust Oxytocin dose but her cervix has chnaged to 8-9 cm/ (0 head came down to 0 Station. FHR categ I Continue to monitor closely. Results & Data Vital Signs (Past 12 Hours) Vital Signs Temp Pulse Resp BP Pulse Ox 06/22/23 08:00 20 06/22/23 07:15 36.7 C 20 06/22/23 07:15 20 06/22/23 00:00 18 06/22/23 10:14 91 H 97 06/22/23 10:09 88 93 06/22/23 10:00 20 06/22/23 10:00 20 06/22/23 10:04 85 97 06/22/23 10:05 83 142/74 H 06/22/23 09:59 92 H 98 06/22/23 09:54 86 95 06/22/23 09:49 82 98 06/22/23 09:50 77 126/69 06/22/23 09:44 80 96 06/22/23 09:39 85 96 06/22/23 09:36 82 141/76 H 06/22/23 09:34 84 100 06/22/23 09:29 86 98 06/22/23 09:24 85 99 06/22/23 09:19 85 98 06/22/23 09:20 83 130/76 06/22/23 09:14 87 99 06/22/23 09:09 82 96 06/22/23 09:05 93 H 133/59 L 06/22/23 09:04 93 H 97 06/22/23 09:00 36.8 C 91 H 20 86 L 06/22/23 08:59 90 99 06/22/23 08:56 80 139/71 06/22/23 08:54 88 99 06/22/23 08:51 100 H 97/50 L 06/22/23 08:49 94 H 97 06/22/23 08:50 96 H 93 06/22/23 08:44 91 H 94 06/22/23 08:39 88 99 06/22/23 08:37 79 93 06/22/23 08:35 76 136/76 06/22/23 08:34 82 97 06/22/23 08:30 20 09/06/23 08:30 20 06/22/23 08:29 87 96 06/22/23 08:26 92 H 94 06/22/23 08:24 87 98 06/22/23 08:20 77 135/81 06/22/23 08:19 80 97 06/22/23 08:00 20 06/22/23 08:00 20 06/22/23 08:14 82 96 06/22/23 08:09 84 99 06/22/23 08:08 79 90 06/22/23 08:04 83 100 06/22/23 08:05 91 H 135/81 06/22/23 07:59 87 99 06/22/23 07:54 99 06/22/23 07:54 86 06/22/23 07:54 84 93 06/22/23 07:50 78 135/80 06/22/23 07:49 80 96 06/22/23 07:44 87 96 06/22/23 07:43 83 93 06/22/23 07:39 86 98 06/22/23 07:37 85 92 06/22/23 07:35 88 146/83 H 06/22/23 07:34 85 99 06/22/23 07:29 85 96 06/22/23 07:24 90 97 06/22/23 07:20 88 129/71 06/22/23 07:19 85 98 06/22/23 07:14 90 97 06/22/23 07:09 83 97 06/22/23 07:05 88 130/74 06/22/23 07:04 87 93 06/22/23 07:00 18 06/22/23 07:00 18 06/22/23 07:01 91 H 92 06/22/23 06:59 85 98 06/22/23 06:55 83 94 06/22/23 06:54 81 95 06/22/23 06:50 83 137/72 06/22/23 06:49 85 95 06/22/23 06:44 83 95 06/22/23 06:40 80 94 06/22/23 06:39 87 96 06/22/23 06:30 18 06/22/23 06:30 18 06/22/23 06:15 36.6 C 06/22/23 06:36 88 130/78 06/22/23 06:34 87 97 06/22/23 06:32 89 94 06/22/23 06:29 85 96 06/22/23 06:24 90 98 06/22/23 06:19 88 98 06/22/23 06:20 92 H 120/71 06/22/23 06:14 94 H 97 06/22/23 06:13 99 H 91 06/22/23 06:09 98 H 100 06/22/23 06:08 102 H 93 06/22/23 06:00 18 06/22/23 06:00 18 06/22/23 06:04 93 H 99 06/22/23 06:05 93 H 112/63 06/22/23 05:59 97 06/22/23 05:59 90 06/22/23 05:59 97 H 91 06/22/23 05:54 94 H 97 06/22/23 05:49 96 H 99 06/22/23 05:50 100 H 112/64 06/22/23 05:44 96 H 96 06/22/23 05:40 90 94 06/22/23 05:39 86 94 06/22/23 05:35 99 H 114/56 L 94 06/22/23 05:34 94 H 94 06/22/23 05:29 88 93 06/22/23 05:24 95 06/22/23 05:24 91 H 06/22/23 05:24 93 H 94 06/22/23 05:19 92 H 94 06/22/23 05:20 91 H 114/63 06/22/23 05:18 93 H 94 06/22/23 05:14 96 H 94 06/22/23 05:11 88 94 06/22/23 05:09 90 93 06/22/23 05:05 88 129/65 94 06/22/23 05:04 91 H 94 06/22/23 04:59 89 95 06/22/23 05:00 93 H 94 06/22/23 04:54 91 H 94 06/22/23 04:52 85 94 06/22/23 04:49 88 95 06/22/23 04:50 83 128/67 06/22/23 04:47 92 H 94 06/22/23 04:44 87 94 06/22/23 04:41 89 94 06/22/23 04:39 86 94 06/22/23 04:30 18 06/22/23 04:30 18 06/22/23 04:35 93 H 06/22/23 04:34 98 H 94 06/22/23 04:35 99 H 107/57 L 94 06/22/23 04:00 18 06/22/23 04:00 37.0 C 18 06/22/23 04:29 90 94 06/22/23 04:24 89 97 06/22/23 04:20 85 127/66 06/22/23 04:19 95 06/22/23 04:19 95 H 06/22/23 04:19 90 94 06/22/23 04:14 93 06/22/23 04:14 90 06/22/23 04:14 88 93 06/22/23 04:09 89 95 06/22/23 04:08 94 H 94 06/22/23 04:05 88 123/59 L 06/22/23 04:04 90 97 06/22/23 04:01 95 H 93 06/22/23 03:59 94 H 96 06/22/23 03:54 89 92 06/22/23 03:53 94 H 93 06/22/23 03:51 90 120/57 L 06/22/23 03:49 93 H 92 06/22/23 03:44 94 06/22/23 03:44 84 06/22/23 03:44 88 93 06/22/23 03:39 88 92 06/22/23 03:35 93 H 103/54 L 94 06/22/23 02:30 18 06/22/23 02:30 18 06/22/23 03:00 18 06/22/23 03:00 18 06/22/23 03:30 18 06/22/23 03:30 18 06/22/23 03:34 90 94 06/22/23 03:29 95 H 92 06/22/23 03:24 88 93 06/22/23 03:23 88 93 06/22/23 03:21 85 117/54 L 06/22/23 03:19 91 H 90 06/22/23 03:14 84 92 06/22/23 03:09 89 90 06/22/23 03:05 85 111/56 L 06/22/23 03:04 84 91 06/22/23 02:59 85 94 06/22/23 03:00 86 18 93 06/22/23 02:30 18 06/22/23 02:30 18 06/22/23 02:54 86 93 06/22/23 02:49 92 06/22/23 02:49 84 06/22/23 02:50 85 102/56 L 06/22/23 02:49 84 94 06/22/23 02:44 95 06/22/23 02:44 91 H 06/22/23 02:44 84 94 06/22/23 02:39 88 97 06/22/23 02:35 92 H 93 06/22/23 02:34 84 96 06/22/23 02:29 92 H 96 06/22/23 02:24 86 90 06/22/23 02:22 76 132/70 06/22/23 02:20 79 92 06/22/23 02:19 79 95 06/22/23 02:14 82 91 06/22/23 02:11 81 94 06/22/23 02:00 18 06/22/23 02:00 18 06/22/23 02:09 83 91 06/22/23 01:30 18 06/22/23 01:30 36.7 C 18 06/22/23 02:06 80 134/73 06/22/23 02:04 82 93 06/22/23 01:59 82 91 06/22/23 01:54 79 97 06/22/23 01:55 79 92 06/22/23 01:51 77 135/76 06/22/23 01:49 78 92 06/22/23 01:44 92 06/22/23 01:44 77 06/22/23 01:44 79 94 06/22/23 01:39 85 97 06/22/23 01:36 91 H 114/58 L 94 06/22/23 01:34 79 94 06/22/23 01:31 89 93 06/22/23 01:29 81 92 06/22/23 01:24 81 92 06/22/23 01:20 79 130/77 06/22/23 01:19 80 91 06/22/23 01:17 79 93 06/22/23 01:14 80 92 06/22/23 01:09 85 91 06/22/23 01:10 82 92 06/22/23 01:06 83 128/78 06/22/23 01:04 80 93 06/22/23 00:59 86 94 06/22/23 00:54 87 96 06/22/23 00:49 90 96 06/22/23 00:50 86 125/76 06/22/23 00:48 90 93 06/22/23 00:47 96 H 123/70 06/22/23 00:44 97 H 95 06/22/23 00:43 105 H 137/85 06/22/23 00:39 100 H 151/80 H 96 06/22/23 00:34 101 H 98 06/22/23 00:35 100 H 146/70 H 06/22/23 00:29 102 H 97 06/22/23 00:24 105 H 97 06/21/23 23:08 99 H 06/21/23 23:08 135/59 L
[2023-06-22] MEDS: MAGNESIUM SULFATE / WTR 40 GM/1,000 ML BAG IV SCH (10:22)
[2023-06-22 10:25] LABS: Basophils # (auto) 0.02 K/uL (0.00-0.20); Basophils % (auto) 0.2 %; Hematocrit (blood only) 32.7 % (37.0-47.0); Hemoglobin 10.4 g/dl (12.0-16.0); Immature Granulocytes # (auto) 0.12 K/uL (0.01-0.20); Lymphocytes % (auto) 10.9 %; Mean Corpuscular Hemoglobin 24.5 pg (25.0-34.0); Mean Corpuscular Hgb Conc 31.8 g/dL (32.0-36.0); Mean Corpuscular Volume 77.1 fL (80.0-100.0); Monocytes # (auto) 0.84 K/uL (0.11-0.59); Neutrophils # (auto) 9.64 K/uL (1.40-6.50); Neutrophils % (auto) 80.9 %; Platelet Count 439 K/uL (130-400); RDW Coefficient of Variation 16.2 % (11.5-14.5); RDW Standard Deviation 45.4 fL (36.4-46.3); Red Blood Count 4.24 M/uL (4.20-5.40); White Blood Count 11.92 K/ul (4.8-10.8)
[2023-06-22 10:52] LABS: Albumin Level 3.1 gm/dl (3.4-5.0); Bilirubin,Total 0.3 mg/dl (0.2-1.0); Calcium 7.5 mg/dl (8.6-10.3); Magnesium Therapeutic L&D Only 5.4 mg/dL (4.0-8.0); Potassium 4.2 mmol/L (3.5-5.1)
[2023-06-22 10:58] LABS: BUN Creatinine Ratio 24.2 (10-20); Creatinine Clr Calc Pharmacy 170.8 ml/min; Est GFR (African American) 129.9 ml/min; Est GFR (Non-African American) 112.1 ml/min; Globulin 3.2 gm/dl (2.5-4.0); Total Protein 6.3 gm/dl (6.0-8.3)
[2023-06-22] MEDS ORDERED: bisacodyL 10 MG SUPP PR PRN (11:12)
[2023-06-22] MEDS ORDERED: MEASLES, MUMPS & RUBELLA VIRUS VIAL SQ ONE (11:12)
[2023-06-22] MEDS ORDERED: DIPHTHERIA/TETANUS/PERTUSSIS Vaccine (Tdap, Age 7+yrs) 0.5mL SYR/VL IM ONE (11:12)
[2023-06-22] MEDS ORDERED: oxyCODONE/ACETAMINOPHEN 5mg/325mg TAB PO PRN (11:12)
[2023-06-22] MEDS ORDERED: HYDROCORTISONE ACETATE 25 MG SUPP PR PRN (11:12)
[2023-06-22] MEDS ORDERED: ACETAMINOPHEN 325 MG TAB PO PRN (11:12)
[2023-06-22] MEDS ORDERED: BENZOCAINE 20% SPRY 85 APPLN/85 GM CAN EXT PRN (11:12)
--- NOTE | 2023-06-22 11:12 | Delivery Summary ---
Vaginal Delivery Summary Date of Service June 22, 2023 Vaginal Delivery Summary Patient was found to be fully dilated and desired to push. She pushed for about half an hour and delivered the head over an intact perineum. The shoulders were delivered with with the same push. The baby was handed off to the mother where mouth and nose were suctioned. The cord was clampedx2 and cut. The baby was vigorously moving and crying. The vagina and perineum were checked. There was a small first-degree laceration at clitoris superior to urethral opening. Melo catheter was inserted and this was repaired with 3-0 Vicryl on SH needle with [id number] stitch x2. It was hemostatic There was another first-degree laceration at the posterior fornix. It was repaired with 2-0 Vicryl in a running fashion. Excellent hemostasis achieved. The placenta was found to be in the vagina, delivered spontaneously as intact and complete. The uterus was explored and found to be empty, lower segment was cleared off cloths and debris. EBL was 300 mL. Baby was a viable male infant, Apgars were 8/9. Mom and baby tolerated the procedure well. No complication happened and I was present during whole procedure. The sponge and instrument count as correctx2.
--- NOTE | 2023-06-22 14:35 | Anesthesia Procedure Note ---
Date of Service June 22, 2023 Anesthesia Post Epidural Note Vital Signs Vital Signs: Temp Pulse Resp BP Pulse Ox 36.5 C 80 20 132/78 97 06/22/23 13:05 06/22/23 14:29 06/22/23 13:44 06/22/23 14:10 06/22/23 14:29 Notes Mental Status: alert / awake / arousable and participated in evaluation Patient Amnestic to Procedure: No Nausea / Vomiting: adequately controlled Pain: adequately controlled Airway Patency, RR, SpO2: stable & adequate BP & HR: stable & adequate Hydration State: stable & adequate Neuraxial Anesthesia: was administered and sensory block is resolving Anesthetic Complications: no major complications apparent and Pt Satisfied with anesthetic care Epidural: Removed without complications and With tip intact
[2023-06-22] MEDS: LANTUS PER UNIT CHARGE SQ SCH (21:08)
[2023-06-22] MEDS: DOCUSATE SODIUM 100 MG CAP PO SCH (21:30)
[2023-06-23 05:55] LABS: Basophils # (auto) 0.02 K/uL (0.00-0.20); Basophils % (auto) 0.2 %; Eosinophils # (auto) 0.02 K/uL (0.00-0.50); Eosinophils % (auto) 0.2 %; Hematocrit (blood only) 28.5 % (37.0-47.0); Hemoglobin 9.2 g/dl (12.0-16.0); Immature Granulocytes # (auto) 0.09 K/uL (0.01-0.20); Immature Granulocytes % (auto) 0.9 %; Lymphocytes # (auto) 2.24 K/uL (1.20-3.40); Lymphocytes % (auto) 22.2 %; Mean Corpuscular Hemoglobin 24.9 pg (25.0-34.0); Mean Corpuscular Hgb Conc 32.3 g/dL (32.0-36.0); Mean Corpuscular Volume 77.2 fL (80.0-100.0); Mean Platelet Volume 8.9 fL (9.4-12.4); Monocytes % (auto) 8.9 %; Neutrophils # (auto) 6.84 K/uL (1.40-6.50); Neutrophils % (auto) 67.6 %; Platelet Count 415 K/uL (130-400); RDW Coefficient of Variation 16.3 % (11.5-14.5); RDW Standard Deviation 45.9 fL (36.4-46.3); Red Blood Count 3.69 M/uL (4.20-5.40); White Blood Count 10.11 K/ul (4.8-10.8)
[2023-06-23] MEDS: MAGNESIUM SULFATE / WTR 40 GM/1,000 ML BAG IV SCH (06:00)
[2023-06-23 06:05] LABS: Albumin Level 2.8 gm/dl (3.4-5.0); BUN Creatinine Ratio 19.4 (10-20); Bilirubin,Total 0.2 mg/dl (0.2-1.0); Calcium 6.6 mg/dl (8.6-10.3); Creatinine Clr Calc Pharmacy 181.9 ml/min; Est GFR (African American) 132.6 ml/min; Est GFR (Non-African American) 114.4 ml/min; Globulin 2.8 gm/dl (2.5-4.0); Potassium 4.1 mmol/L (3.5-5.1); Total Protein 5.6 gm/dl (6.0-8.3)
[2023-06-23] MEDS ORDERED: IRON SUCROSE 200 MG in 0.9 % SODIUM CHLORIDE 100 ML IV ONE (08:00)
[2023-06-23] MEDS: FERROUS SULFATE 325 MG TAB PO SCH (08:06)
[2023-06-23] MEDS: DOCUSATE SODIUM 100 MG CAP PO SCH ×2 (08:06→20:10)
[2023-06-23] MEDS: PRENATAL VITAMIN 1 TAB PO SCH (08:06)
[2023-06-23] MEDS: LABETALOL HCL 200 MG TAB PO SCH ×2 (09:06→20:11)
[2023-06-23] MEDS: LACTATED RINGER'S 1,000 ML IV PRN (09:14)
--- NOTE | 2023-06-23 11:37 | Obstetrical Progress Note ---
Date of Service June 23, 2023 Assessment & Plan (1) Preeclampsia: Plan Will stop Magnesium transfer to floor Subjective Ambulation: limited ambulation Voiding: chavez catheter in place Passing Gas:: Yes Lochia:: Small Feeding Type:: breast feeding Current Pain Level(1-10): 0 doing well denies headache or visual changes. no nausea or vomiting Physical Exam Constitutional WD/WN, vitals as above Gastrointestinal (Abdomen) Inspection/Auscultation: abdomen normal to inspection abdomen soft and non-tender Musculoskeletal Extremities: extremities normal to inspection Skin no rashes, warm and dry Neurologic patellar DTR's 2+ bilat, sensation intact Psychiatric A+Ox3, euthymic affect Results & Data Vital Signs (Past 12 Hours) Vital Signs Temp Pulse Resp BP Pulse Ox 06/23/23 07:15 36.7 C 06/23/23 07:15 06/23/23 06:00 18 06/23/23 05:00 18 06/23/23 04:00 36.7 C 06/23/23 04:00 06/23/23 03:00 06/23/23 02:00 06/23/23 01:00 06/23/23 11:33 80 136/65 06/23/23 11:30 89 90 06/23/23 11:28 91 H 94 06/23/23 11:23 85 92 06/23/23 11:24 85 91 06/23/23 11:18 85 95 06/23/23 11:13 86 95 06/23/23 11:08 83 95 06/23/23 11:03 84 95 06/23/23 11:02 80 92 06/23/23 10:58 78 93 06/23/23 10:57 87 92 06/23/23 10:53 82 95 06/23/23 10:51 85 92 06/23/23 10:48 89 94 06/23/23 10:43 86 94 06/23/23 10:38 88 95 06/23/23 10:35 84 92 06/23/23 10:33 87 95 06/23/23 10:28 86 91 06/23/23 10:23 89 95 06/23/23 10:18 91 H 95 06/23/23 10:13 91 H 96 06/23/23 10:08 87 96 06/23/23 10:03 90 95 06/23/23 09:58 88 95 06/23/23 09:53 86 94 06/23/23 09:48 88 95 06/23/23 09:43 90 95 06/23/23 09:38 86 94 06/23/23 09:33 86 94 06/23/23 09:28 86 95 06/23/23 09:23 93 H 96 06/23/23 09:18 88 95 06/23/23 09:13 89 96 06/23/23 09:08 83 95 06/23/23 09:06 81 157/86 H 06/23/23 09:03 90 95 06/23/23 08:58 89 95 06/23/23 08:53 93 H 95 06/23/23 08:48 80 96 06/23/23 08:43 81 95 06/23/23 08:38 81 96 06/23/23 08:33 86 96 06/23/23 08:28 82 95 06/23/23 08:23 84 96 06/23/23 08:18 78 96 06/23/23 08:13 82 96 06/23/23 08:08 85 96 06/23/23 08:03 87 97 06/23/23 07:58 81 96 06/23/23 07:53 82 96 06/23/23 07:48 81 95 06/23/23 07:43 83 95 06/23/23 07:38 85 97 06/23/23 07:33 87 96 06/23/23 07:28 86 96 06/23/23 07:23 87 96 06/23/23 07:18 84 95 06/23/23 07:13 84 95 06/23/23 07:14 81 131/67 06/23/23 07:08 88 90 06/23/23 07:06 78 92 06/23/23 07:03 80 92 06/23/23 07:01 78 92 06/23/23 06:57 76 93 06/23/23 06:56 74 91 06/23/23 06:52 70 91 06/23/23 06:49 81 90 06/23/23 06:47 77 94 06/23/23 06:42 75 92 06/23/23 06:37 77 96 06/23/23 06:38 78 92 06/23/23 06:32 77 92 09/07/23 06:33 72 92 06/23/23 06:27 87 94 06/23/23 06:22 78 94 06/23/23 06:17 80 96 06/23/23 06:12 79 96 06/23/23 06:07 78 97 06/23/23 06:02 79 96 06/23/23 05:57 80 96 06/23/23 05:52 78 95 06/23/23 05:47 84 95 06/23/23 05:42 88 95 06/23/23 05:37 84 94 06/23/23 05:32 80 97 06/23/23 05:27 83 95 06/23/23 05:22 85 95 06/23/23 05:17 84 97 06/23/23 05:12 80 96 06/23/23 05:07 83 97 06/23/23 05:02 83 96 06/23/23 04:57 94 H 99 06/23/23 04:52 88 97 06/23/23 04:47 86 97 06/23/23 04:42 88 98 06/23/23 04:37 82 98 06/23/23 04:36 85 141/68 H 06/23/23 04:32 84 96 06/23/23 04:27 80 98 06/23/23 04:22 78 96 06/23/23 04:17 78 96 06/23/23 04:12 79 96 06/23/23 04:07 82 95 06/23/23 04:02 81 93 06/23/23 03:57 77 93 06/23/23 03:58 82 92 06/23/23 03:52 95 06/23/23 03:52 84 06/23/23 03:52 83 92 06/23/23 03:47 83 94 06/23/23 03:42 84 95 06/23/23 03:37 81 95 06/23/23 03:32 84 95 06/23/23 03:27 83 97 06/23/23 03:22 91 H 95 06/23/23 03:17 88 92 06/23/23 03:12 77 96 06/23/23 03:07 78 96 06/23/23 03:02 82 95 06/23/23 02:57 82 96 06/23/23 02:52 78 94 06/23/23 02:47 82 95 06/23/23 02:42 84 95 06/23/23 02:37 84 96 06/23/23 02:32 80 97 06/23/23 02:27 84 95 06/23/23 02:22 81 97 06/23/23 02:17 86 96 06/23/23 02:12 86 98 06/23/23 02:07 92 H 96 06/23/23 02:02 79 95 06/23/23 00:00 18 06/23/23 01:57 80 93 06/23/23 01:52 77 94 06/23/23 01:47 79 93 06/23/23 01:42 76 93 06/23/23 01:37 80 93 06/23/23 01:32 80 92 06/23/23 01:31 80 92 06/23/23 01:27 80 92 06/23/23 01:26 80 92 06/23/23 01:22 80 92 06/23/23 01:20 81 92 06/23/23 01:17 80 93 06/23/23 01:15 81 92 06/23/23 01:12 80 92 06/23/23 01:10 81 92 06/23/23 01:07 79 92 06/23/23 01:05 80 92 06/23/23 01:02 80 93 06/23/23 00:59 80 92 06/23/23 00:57 81 93 06/23/23 00:52 80 93 06/23/23 00:47 79 94 06/23/23 00:42 76 93 06/23/23 00:37 79 95 06/23/23 00:34 79 92 06/23/23 00:32 77 94 06/23/23 00:27 80 93 06/23/23 00:22 82 95 06/23/23 00:17 81 96 06/23/23 00:12 85 95 06/23/23 00:07 86 95 06/23/23 00:02 84 94 06/22/23 23:57 88 95 06/22/23 23:52 82 95 06/22/23 23:51 80 125/70 06/22/23 23:49 84 92 06/22/23 23:47 88 97 06/22/23 23:42 84 96 06/22/23 23:37 87 92 Laboratory Results 06/21/23 06/21/23 06/21/23 14:14 14:14 16:48 WBC 8.68 RBC 4.37 Hgb 10.7 L Hct 34.2 L MCV 78.3 L MCH 24.5 L MCHC 31.3 L RDW Std Deviation 45.3 RDW Coeff of Jessica 15.9 H Plt Count 399 MPV 9.2 L Immature Gran % (Auto) 0.6 Neut % (Auto) 71.9 Lymph % (Auto) 19.8 [place] % (Auto) 6.9 Eos % (Auto) 0.6 Baso % (Auto) 0.2 Neut # (Auto) 6.24 Lymph # (Auto) 1.72 [place] # (Auto) 0.60 H Eos # (Auto) 0.05 Baso # (Auto) 0.02 Immature Gran # (Auto) 0.05 Sodium 135 L Potassium 3.8 Chloride 106 Carbon Dioxide 21 Anion Gap 8 BUN 13 Creatinine 0.58 L Est Cr Clr Drug Dosing 194.4 Est GFR ( Amer) 135.5 Est GFR (Non-Af Amer) 116.9 BUN/Creatinine Ratio 22.4 H Glucose 69 L POC Glucose Calcium 8.8 Magnesium (Sulf Ther) Total Bilirubin 0.2 AST 11 L ALT 9 Alkaline Phosphatase 114 H Total Protein 6.3 Albumin 3.1 L Globulin 3.2 Albumin/Globulin Ratio 1.0 Ur Random Creatinine U Random Total Protein Protein/Creatinin Ratio Blood Type A Positive Antibody Screen NEGATIVE 06/21/23 06/21/23 06/21/23 16:48 19:13 Unknown WBC 9.01 RBC 4.45 Hgb 10.8 L Hct 34.8 L MCV 78.2 L MCH 24.3 L MCHC 31.0 L RDW Std Deviation 45.2 RDW Coeff of Jessica 15.9 H Plt Count 408 H MPV 9.1 L Immature Gran % (Auto) Neut % (Auto) Lymph % (Auto) [place] % (Auto) Eos % (Auto) Baso % (Auto) Neut # (Auto) Lymph # (Auto) [place] # (Auto) Eos # (Auto) Baso # (Auto) Immature Gran # (Auto) Sodium Potassium Chloride Carbon Dioxide Anion Gap BUN Creatinine Est Cr Clr Drug Dosing Est GFR ( Amer) Est GFR (Non-Af Amer) BUN/Creatinine Ratio Glucose POC Glucose 151 H Calcium Magnesium (Sulf Ther) Total Bilirubin AST ALT Alkaline Phosphatase Total Protein Albumin Globulin Albumin/Globulin Ratio Ur Random Creatinine 68.8 U Random Total Protein 82.7 H Protein/Creatinin Ratio 1.2 H Blood Type Antibody Screen 06/22/23 06/22/23 06/22/23 07:22 09:09 09:56 WBC 11.92 H RBC 4.24 Hgb 10.4 L Hct 32.7 L MCV 77.1 L MCH 24.5 L MCHC 31.8 L RDW Std Deviation 45.4 RDW Coeff of Jessica 16.2 H Plt Count 439 H MPV 9.0 L Immature Gran % (Auto) 1.0 Neut % (Auto) 80.9 Lymph % (Auto) 10.9 [place] % (Auto) 7.0 Eos % (Auto) 0.0 Baso % (Auto) 0.2 Neut # (Auto) 9.64 H Lymph # (Auto) 1.30 [place] # (Auto) 0.84 H Eos # (Auto) 0.00 Baso # (Auto) 0.02 Immature Gran # (Auto) 0.12 Sodium Potassium Chloride Carbon Dioxide Anion Gap BUN Creatinine Est Cr Clr Drug Dosing Est GFR ( Amer) Est GFR (Non-Af Amer) BUN/Creatinine Ratio Glucose POC Glucose 105 H 107 H Calcium Magnesium (Sulf Ther) Total Bilirubin AST ALT Alkaline Phosphatase Total Protein Albumin Globulin Albumin/Globulin Ratio Ur Random Creatinine U Random Total Protein Protein/Creatinin Ratio Blood Type Antibody Screen 06/22/23 06/23/23 06/23/23 09:56 05:31 05:31 WBC 10.11 RBC 3.69 L Hgb 9.2 L Hct 28.5 L MCV 77.2 L MCH 24.9 L MCHC 32.3 RDW Std Deviation 45.9 RDW Coeff of Jessica 16.3 H Plt Count 415 H MPV 8.9 L Immature Gran % (Auto) 0.9 Neut % (Auto) 67.6 Lymph % (Auto) 22.2 [place] % (Auto) 8.9 Eos % (Auto) 0.2 Baso % (Auto) 0.2 Neut # (Auto) 6.84 H Lymph # (Auto) 2.24 [place] # (Auto) 0.90 H Eos # (Auto) 0.02 Baso # (Auto) 0.02 Immature Gran # (Auto) 0.09 Sodium 132 L 134 L Potassium 4.2 4.1 Chloride 103 108 H Carbon Dioxide 21 21 Anion Gap 8 5 BUN 16 12 Creatinine 0.66 0.62 Est Cr Clr Drug Dosing 170.8 181.9 Est GFR ( Amer) 129.9 132.6 Est GFR (Non-Af Amer) 112.1 114.4 BUN/Creatinine Ratio 24.2 H 19.4 Glucose 101 H 114 H POC Glucose Calcium 7.5 L 6.6 L Magnesium (Sulf Ther) 5.4 Total Bilirubin 0.3 0.2 AST 10 L 10 L ALT 9 8 Alkaline Phosphatase 112 H 95 Total Protein 6.3 5.6 L Albumin 3.1 L 2.8 L Globulin 3.2 2.8 Albumin/Globulin Ratio 1.0 1.0 Ur Random Creatinine U Random Total Protein Protein/Creatinin Ratio Blood Type Antibody Screen
[2023-06-23] MEDS ORDERED: bisacodyL 5 MG TABEC PO SCH (20:00)
[2023-06-24 06:43] LABS: Hematocrit (blood only) 28.8 % (37.0-47.0); Hemoglobin 8.9 g/dl (12.0-16.0)
[2023-06-24] MEDS: LABETALOL HCL 200 MG TAB PO SCH (08:04)
[2023-06-24] MEDS: DOCUSATE SODIUM 100 MG CAP PO SCH (08:04)
[2023-06-24] MEDS: IBUPROFEN 600 MG TAB PO PRN ×2 (08:04→12:25)
[2023-06-24] MEDS: PRENATAL VITAMIN 1 TAB PO SCH (08:04)
[2023-06-24] MEDS: FERROUS SULFATE 325 MG TAB PO SCH (08:04)
--- NOTE | 2023-06-24 08:59 | Obstetrical Progress Note ---
Date of Service June 24, 2023 Assessment & Plan Admission and Anticipated Discharge Date Admission Date: June 21, 2023 Subjective Patient is seen and examined. She feels well, no complaints. Ambulating without dizziness Voiding without difficulty Tolerating regular diet with out N&V Bleeding is minimal No PORTER/ Change in vision/ epig or RUQ pain/ fever/ chills/ CP/ SOB/ N&V/ Leg pain Breast feeding without problems Vital Signs Temp Pulse Resp BP Pulse Ox O2 Del Method 06/24/23 08:00 36.8 C 78 18 137/83 97 Room Air 06/24/23 00:10 36.6 C 88 18 117/79 95 Room Air Lab Results 06/21/23 06/21/23 06/21/23 Range/Units 14:14 14:14 16:48 WBC 8.68 (4.8-10.8) K/ul RBC 4.37 (4.20-5.40) M/uL Hgb 10.7 L (12.0-16.0) g/dl Hct 34.2 L (37.0-47.0) % MCV 78.3 L (80.0-100.0) fL MCH 24.5 L (25.0-34.0) pg MCHC 31.3 L (32.0-36.0) g/dL RDW Std Deviation 45.3 (36.4-46.3) fL RDW Coeff of Jessica 15.9 H (11.5-14.5) % Plt Count 399 (130-400) K/uL MPV 9.2 L (9.4-12.4) fL Immature Gran % (Auto) 0.6 % Neut % (Auto) 71.9 % Lymph % (Auto) 19.8 % [place] % (Auto) 6.9 % Eos % (Auto) 0.6 % Baso % (Auto) 0.2 % Neut # (Auto) 6.24 (1.40-6.50) K/uL Lymph # (Auto) 1.72 (1.20-3.40) K/uL [place] # (Auto) 0.60 H (0.11-0.59) K/uL Eos # (Auto) 0.05 (0.00-0.50) K/uL Baso # (Auto) 0.02 (0.00-0.20) K/uL Immature Gran # (Auto) 0.05 (0.01-0.20) K/uL Sodium 135 L (136-145) mmol/L Potassium 3.8 (3.5-5.1) mmol/L Chloride 106 (98-107) mmol/L Carbon Dioxide 21 (21-32) mmol/L Anion Gap 8 (3-11) BUN 13 (6-23) mg/dl Creatinine 0.58 L (0.6-1.2) mg/dl Est Cr Clr Drug Dosing 194.4 ml/min Est GFR ( Amer) 135.5 ml/min Est GFR (Non-Af Amer) 116.9 ml/min BUN/Creatinine Ratio 22.4 H (10-20) Glucose 69 L (70-99(Fasting)) mg/dl POC Glucose (70-99) mg/dl Calcium 8.8 (8.6-10.3) mg/dl Magnesium (Sulf Ther) (4.0-8.0) mg/dL Total Bilirubin 0.2 (0.2-1.0) mg/dl AST 11 L (13-39) U/L ALT 9 (7-52) U/L Alkaline Phosphatase 114 H (34-104) U/L Total Protein 6.3 (6.0-8.3) gm/dl Albumin 3.1 L (3.4-5.0) gm/dl Globulin 3.2 (2.5-4.0) gm/dl Albumin/Globulin Ratio 1.0 (0.9-2) Ur Random Creatinine mg/dl U Random Total Protein (0-11.9) mg/dl Protein/Creatinin Ratio (0-0.2) Blood Type A Positive Antibody Screen NEGATIVE 06/21/23 06/21/23 06/21/23 Range/Units 16:48 19:13 Unknown WBC 9.01 (4.8-10.8) K/ul RBC 4.45 (4.20-5.40) M/uL Hgb 10.8 L (12.0-16.0) g/dl Hct 34.8 L (37.0-47.0) % MCV 78.2 L (80.0-100.0) fL MCH 24.3 L (25.0-34.0) pg MCHC 31.0 L (32.0-36.0) g/dL RDW Std Deviation 45.2 (36.4-46.3) fL RDW Coeff of Jessica 15.9 H (11.5-14.5) % Plt Count 408 H (130-400) K/uL MPV 9.1 L (9.4-12.4) fL Immature Gran % (Auto) % Neut % (Auto) % Lymph % (Auto) % [place] % (Auto) % Eos % (Auto) % Baso % (Auto) % Neut # (Auto) (1.40-6.50) K/uL Lymph # (Auto) (1.20-3.40) K/uL [place] # (Auto) (0.11-0.59) K/uL Eos # (Auto) (0.00-0.50) K/uL Baso # (Auto) (0.00-0.20) K/uL Immature Gran # (Auto) (0.01-0.20) K/uL Sodium (136-145) mmol/L Potassium (3.5-5.1) mmol/L Chloride (98-107) mmol/L Carbon Dioxide (21-32) mmol/L Anion Gap (3-11) BUN (6-23) mg/dl Creatinine (0.6-1.2) mg/dl Est Cr Clr Drug Dosing ml/min Est GFR ( Amer) ml/min Est GFR (Non-Af Amer) ml/min BUN/Creatinine Ratio (10-20) Glucose (70-99(Fasting)) mg/dl POC Glucose 151 H (70-99) mg/dl Calcium (8.6-10.3) mg/dl Magnesium (Sulf Ther) (4.0-8.0) mg/dL Total Bilirubin (0.2-1.0) mg/dl AST (13-39) U/L ALT (7-52) U/L Alkaline Phosphatase (34-104) U/L Total Protein (6.0-8.3) gm/dl Albumin (3.4-5.0) gm/dl Globulin (2.5-4.0) gm/dl Albumin/Globulin Ratio (0.9-2) Ur Random Creatinine 68.8 mg/dl U Random Total Protein 82.7 H (0-11.9) mg/dl Protein/Creatinin Ratio 1.2 H (0-0.2) Blood Type Antibody Screen 06/22/23 06/22/23 06/22/23 Range/Units 07:22 09:09 09:56 WBC 11.92 H (4.8-10.8) K/ul RBC 4.24 (4.20-5.40) M/uL Hgb 10.4 L (12.0-16.0) g/dl Hct 32.7 L (37.0-47.0) % MCV 77.1 L (80.0-100.0) fL MCH 24.5 L (25.0-34.0) pg MCHC 31.8 L (32.0-36.0) g/dL RDW Std Deviation 45.4 (36.4-46.3) fL RDW Coeff of Jessica 16.2 H (11.5-14.5) % Plt Count 439 H (130-400) K/uL MPV 9.0 L (9.4-12.4) fL Immature Gran % (Auto) 1.0 % Neut % (Auto) 80.9 % Lymph % (Auto) 10.9 % [place] % (Auto) 7.0 % Eos % (Auto) 0.0 % Baso % (Auto) 0.2 % Neut # (Auto) 9.64 H (1.40-6.50) K/uL Lymph # (Auto) 1.30 (1.20-3.40) K/uL [place] # (Auto) 0.84 H (0.11-0.59) K/uL Eos # (Auto) 0.00 (0.00-0.50) K/uL Baso # (Auto) 0.02 (0.00-0.20) K/uL Immature Gran # (Auto) 0.12 (0.01-0.20) K/uL Sodium (136-145) mmol/L Potassium (3.5-5.1) mmol/L Chloride (98-107) mmol/L Carbon Dioxide (21-32) mmol/L Anion Gap (3-11) BUN (6-23) mg/dl Creatinine (0.6-1.2) mg/dl Est Cr Clr Drug Dosing ml/min Est GFR ( Amer) ml/min Est GFR (Non-Af Amer) ml/min BUN/Creatinine Ratio (10-20) Glucose (70-99(Fasting)) mg/dl POC Glucose 105 H 107 H (70-99) mg/dl Calcium (8.6-10.3) mg/dl Magnesium (Sulf Ther) (4.0-8.0) mg/dL Total Bilirubin (0.2-1.0) mg/dl AST (13-39) U/L ALT (7-52) U/L Alkaline Phosphatase (34-104) U/L Total Protein (6.0-8.3) gm/dl Albumin (3.4-5.0) gm/dl Globulin (2.5-4.0) gm/dl Albumin/Globulin Ratio (0.9-2) Ur Random Creatinine mg/dl U Random Total Protein (0-11.9) mg/dl Protein/Creatinin Ratio (0-0.2) Blood Type Antibody Screen 06/22/23 06/23/23 06/23/23 Range/Units 09:56 05:31 05:31 WBC 10.11 (4.8-10.8) K/ul RBC 3.69 L (4.20-5.40) M/uL Hgb 9.2 L (12.0-16.0) g/dl Hct 28.5 L (37.0-47.0) % MCV 77.2 L (80.0-100.0) fL MCH 24.9 L (25.0-34.0) pg MCHC 32.3 (32.0-36.0) g/dL RDW Std Deviation 45.9 (36.4-46.3) fL RDW Coeff of Jessica 16.3 H (11.5-14.5) % Plt Count 415 H (130-400) K/uL MPV 8.9 L (9.4-12.4) fL Immature Gran % (Auto) 0.9 % Neut % (Auto) 67.6 % Lymph % (Auto) 22.2 % [place] % (Auto) 8.9 % Eos % (Auto) 0.2 % Baso % (Auto) 0.2 % Neut # (Auto) 6.84 H (1.40-6.50) K/uL Lymph # (Auto) 2.24 (1.20-3.40) K/uL [place] # (Auto) 0.90 H (0.11-0.59) K/uL Eos # (Auto) 0.02 (0.00-0.50) K/uL Baso # (Auto) 0.02 (0.00-0.20) K/uL Immature Gran # (Auto) 0.09 (0.01-0.20) K/uL Sodium 132 L 134 L (136-145) mmol/L Potassium 4.2 4.1 (3.5-5.1) mmol/L Chloride 103 108 H (98-107) mmol/L Carbon Dioxide 21 21 (21-32) mmol/L Anion Gap 8 5 (3-11) BUN 16 12 (6-23) mg/dl Creatinine 0.66 0.62 (0.6-1.2) mg/dl Est Cr Clr Drug Dosing 170.8 181.9 ml/min Est GFR ( Amer) 129.9 132.6 ml/min Est GFR (Non-Af Amer) 112.1 114.4 ml/min BUN/Creatinine Ratio 24.2 H 19.4 (10-20) Glucose 101 H 114 H (70-99(Fasting)) mg/dl POC Glucose (70-99) mg/dl Calcium 7.5 L 6.6 L (8.6-10.3) mg/dl Magnesium (Sulf Ther) 5.4 (4.0-8.0) mg/dL Total Bilirubin 0.3 0.2 (0.2-1.0) mg/dl AST 10 L 10 L (13-39) U/L ALT 9 8 (7-52) U/L Alkaline Phosphatase 112 H 95 (34-104) U/L Total Protein 6.3 5.6 L (6.0-8.3) gm/dl Albumin 3.1 L 2.8 L (3.4-5.0) gm/dl Globulin 3.2 2.8 (2.5-4.0) gm/dl Albumin/Globulin Ratio 1.0 1.0 (0.9-2) Ur Random Creatinine mg/dl U Random Total Protein (0-11.9) mg/dl Protein/Creatinin Ratio (0-0.2) Blood Type Antibody Screen 06/24/23 Range/Units 05:29 WBC (4.8-10.8) K/ul RBC (4.20-5.40) M/uL Hgb 8.9 L (12.0-16.0) g/dl Hct 28.8 L (37.0-47.0) % MCV (80.0-100.0) fL MCH (25.0-34.0) pg MCHC (32.0-36.0) g/dL RDW Std Deviation (36.4-46.3) fL RDW Coeff of Jessica (11.5-14.5) % Plt Count (130-400) K/uL MPV (9.4-12.4) fL Immature Gran % (Auto) % Neut % (Auto) % Lymph % (Auto) % [place] % (Auto) % Eos % (Auto) % Baso % (Auto) % Neut # (Auto) (1.40-6.50) K/uL Lymph # (Auto) (1.20-3.40) K/uL [place] # (Auto) (0.11-0.59) K/uL Eos # (Auto) (0.00-0.50) K/uL Baso # (Auto) (0.00-0.20) K/uL Immature Gran # (Auto) (0.01-0.20) K/uL Sodium (136-145) mmol/L Potassium (3.5-5.1) mmol/L Chloride (98-107) mmol/L Carbon Dioxide (21-32) mmol/L Anion Gap (3-11) BUN (6-23) mg/dl Creatinine (0.6-1.2) mg/dl Est Cr Clr Drug Dosing ml/min Est GFR ( Amer) ml/min Est GFR (Non-Af Amer) ml/min BUN/Creatinine Ratio (10-20) Glucose (70-99(Fasting)) mg/dl POC Glucose (70-99) mg/dl Calcium (8.6-10.3) mg/dl Magnesium (Sulf Ther) (4.0-8.0) mg/dL Total Bilirubin (0.2-1.0) mg/dl AST (13-39) U/L ALT (7-52) U/L Alkaline Phosphatase (34-104) U/L Total Protein (6.0-8.3) gm/dl Albumin (3.4-5.0) gm/dl Globulin (2.5-4.0) gm/dl Albumin/Globulin Ratio (0.9-2) Ur Random Creatinine mg/dl U Random Total Protein (0-11.9) mg/dl Protein/Creatinin Ratio (0-0.2) Blood Type Antibody Screen PE: General: Alert, orientedx3, NAD Abd: soft, NT, fundus firm, below Umbilicus Perineum intact, Lochia rubra minimal Ext; NT, no edema AP: 37 yo s/p , IOL for preeclampsia with severe features,ppd# 2 VSS Afebrile doing well On PO labetalol, off magnesium since 11;30 am yesterday Continue routine care All questions were answered Discussed when to call D/C home this afternoon, f/u in office Results & Data Vital Signs (Past 12 Hours) Vital Signs Temp Pulse Resp BP Pulse Ox O2 Del Method 06/24/23 08:00 36.8 C 78 18 137/83 97 Room Air 06/24/23 00:10 36.6 C 88 18 117/79 95 Room Air
== END 2023-06-24 12:32 | disposition home or self-care (01) | DRG 807 ==
LOC: OPB 12:44 → 4S1 12:45 → 4E2 06-23 13:58